=== PATIENT | female | born 1960 | race Caucasian/White ===

== ENCOUNTER → 2020-11-28 11:00 | Outpatient (BNVA) | payer OTHER, SELFPAY | PROVIDERS: Family Provider Family Medicine; PCP Urology; Referring Provider Dermatology; Visit Provider Podiatrist Foot & Ankle Surgery | DX: M79.671 Pain in right foot (principal); M79.672 Pain in left foot; M19.071 Primary osteoarthritis, right ankle and foot; M21.612 Bunion of left foot; M21.611 Bunion of right foot | CPT/HCPCS: 73630 ==

== ENCOUNTER 2021-04-25 09:39 | Outpatient (CLI) | payer OTHER, SELFPAY ==
--- NOTE | 2021-04-25 09:45 | MM_ITS ---
WS: [id number] SCREENING DIGITAL MAMMOGRAM WITH CAD HISTORY: SCREENING COMPARISON: 07/14/2019 and 09/30/2016 Bilateral CC and MLO views submitted. Computer aided detection analyzed. Breast composition: There are scattered areas of fibroglandular density. No suspicious masses, microc alcifications or architectural distortion. MM/[id number] IMPRESSION: BI-RADS: 1-Negative FOLLOW UP: 1 Year Follow-up
== END 2021-04-25 09:40 | disposition home or self-care (01) ==
LOC: RADSHAW 09:43
PROVIDERS: Family Provider Family Medicine; PCP Family Medicine; Visit Provider Family Medicine
DX: Z12.31 Encounter for screening mammogram for malignant neoplasm of breast (principal)
CPT/HCPCS: 77067

== ENCOUNTER → 2021-08-29 08:31 | Outpatient (BNVA) | payer OTHER, SELFPAY | PROVIDERS: Family Provider Family Medicine; PCP Family Medicine; Visit Provider Nurse Practitioner Family | DX: Z20.822 Contact with and (suspected) exposure to COVID-19 (principal) | CPT/HCPCS: 87426 ==

== ENCOUNTER 2021-12-11 09:59 | Outpatient (CLI) | payer OTHER, SELFPAY ==
[2021-12-13 11:06] LABS: Quest SARS-CoV-2 RNA INCONCLUSIVE (NOT DETECTED)
[2021-12-15 11:49] LABS: Adenovirus Not Detected (NOT DETECT); Chlamydia Pneumoniae Not Detected (NOT DETECT); Coronavirus 229E,HKU1,NL63,OC4 Not Detected (NOT DETECT); Human Metapneumovirus Not Detected (NOT DETECT); Human Rhinovirus/Enterovirus Not Detected (NOT DETECT); Influenza A Not Detected (NOT DETECT); Influenza A H1 Not Detected (NOT DETECT); Influenza A H1-2009 Not Detected (NOT DETECT); Influenza A H3 Not Detected (NOT DETECT); Influenza B Not Detected (NOT DETECT); Mycoplasma Pneumoniae Not Detected (NOT DETECT); Parainfluenza Virus Type 1 Not Detected (NOT DETECT); Parainfluenza Virus Type 2 Not Detected (NOT DETECT); Parainfluenza Virus Type 3 Not Detected (NOT DETECT); Parainfluenza Virus Type 4 Not Detected (NOT DETECT); Respiratory Syncytial Virus A Not Detected (NOT DETECT); Respiratory Syncytial Virus B Not Detected (NOT DETECT); SARS-COV-2 Not Detected (NOT DETECT)
== END 2021-12-11 10:00 | disposition home or self-care (01) ==
PROVIDERS: PCP Family Medicine; Visit Provider Surgery
DX: Z01.812 Encounter for preprocedural laboratory examination (principal); Z20.822 Contact with and (suspected) exposure to COVID-19
CPT/HCPCS: 87635

== ENCOUNTER 2021-12-17 06:04 | Day surgery (SDC) | payer OTHER, SELFPAY ==
[2021-12-16 11:37] VITALS: BMI 38.3
[2021-12-17 06:21] VITALS: BP 164/97; PULSE 81; RESP 18; TEMP 36.2; O2SAT 97
[2021-12-17] MEDS: sodium chloride 0.9% 1,000 ML 30 ML IV (06:34)
--- NOTE | 2021-12-17 06:45 | P.ANESASSM_ITS ---
Pre-Anesthetic Assessment Height/Weight: Height 1.7 m Weight 111.13 kg Temp Pulse Resp BP Pulse Ox 97.1 F L 81 18 164/97 97 12/17/21 06:21 12/17/21 06:21 12/17/21 06:21 12/17/21 06:21 12/17/21 06:21 Preop Diagnosis: diagnostic Operation Date: 12/17/21 07:00 Proposed Procedures p Colonoscopy 40165 Z12.11(Not Applicable) - Skinny Pearson MD Was Beta Daniel taken within 24 hours: N/A Was Clonidine taken within 24 hours: N/A Last intake: Intake Last Liquid Date 12/16/21 Last Liquid Time 22:00 Last Solid Date 12/15/21 Last Solid Time 18:30 Social Alcohol (socially) and No alcohol Exam alert, oriented x 3, clear to auscultation bilaterally and regular rate & rhythm Airway Submandibular: within normal limits Cervical ROM: within normal limits Mallampati: Class II Pulmonary None reported CV/HEM None reported None reported Hepatic None reported GI Gastroesophageal Reflux Disease (tums controls ) Metabolic Morbid Obesity [facility] [place] None reported Neuropsych None reported Anesthetic Plan ASA status: 2 Anesthesia: MAC Risk of > 500 ml blood loss (7ml/kg in children): No Medications/Allergies Home Medications Medication Instructions Recorded Confirmed Last Taken Type No Known Home Medications 12/16/21 12/16/21 Unknown History Allergies Allergy/AdvReac Type Severity Reaction Status Date / Time No Known Allergies Allergy Verified 08/29/21 09:37 Current Medications Generic Name Dose Route Start Last Admin Trade Name Freq PRN Reason Stop Dose Admin Sodium Chloride 1,000 mls @ 30 mls/hr 12/17/21 06:15 12/17/21 06:34 Sodium Chloride 0.9% IV 12/18/21 06:14 30 mls/hr .Q24H FRANCOIS Administration PFSH Anesthesia Social History (Updated 06/07/21 @ 09:31 by Tiffani Trujillo) Smoking and tobacco status: never smoked Alcohol intake: never Data Anesthesia Cardiac Studies: No Data to Display
--- NOTE | 2021-12-17 07:00 | W.PM.OPSFHP ---
Same Day Surgery H&P Indication for Procedure/HPI DATE OF PROCEDURE: December 17, 2021 CHIEF COMPLAINT/INDICATIONFOR SURGICAL PROCEDURE: colonoscopy PREOP DIAGNOSIS: diagnostic PLANNED PROCEDURE: Operation Date: 12/17/21 07:00 Proposed Procedures p Colonoscopy 15662 Z12.11(Not Applicable) - Skinny Pearson MD Medications/Allergies* Home Medications Medication Instructions Recorded Confirmed Type No Known Home Medications 12/16/21 12/16/21 History Allergies/Adverse Reactions Allergy/AdvReac Type Severity Reaction Status Date / Time No Known Allergies Allergy Verified 08/29/21 09:37 Current Medications: Generic Name Dose Route Start Last Admin Trade Name Freq PRN Reason Stop Dose Admin Sodium Chloride 1,000 mls @ 30 mls/hr 12/17/21 06:15 12/17/21 06:34 Sodium Chloride 0.9% IV 12/18/21 06:14 30 mls/hr .Q24H FRANCOIS Administration Pertinent History/Comorbid Conditions* Social History Smoking and tobacco status: never smoked Alcohol intake: never Pertinent Exam Findings alert, oriented x 3 and regular rate & rhythm Recommendations Surgery/Procedure today Coding Level of Care Code Acute Production Technologist for Tito Florez
[2021-12-17 07:20] VITALS: BP 121/73; PULSE 74; RESP 16; TEMP 36.2; O2SAT 96
--- NOTE | 2021-12-17 07:23 | ANE.PACU2 ---
Inpatient post-anesthesia follow up: Airway intact: Yes Vital signs: Temperature 97.1 F Pulse Rate 81 Respiratory Rate 18 Blood Pressure 164/97 Pulse Oximetry 97 Oxygen Delivery Me thod Room Air Oxygen Flow Rate Fraction of Inspir ed Oxygen Hydration adequate: Yes Nausea and vomiting: No Pain level: 1 Mental status: Baseline
== END 2021-12-17 07:54 | disposition home or self-care (01) ==
PROVIDERS: PCP Family Medicine; Visit Provider Surgery
PROC: 0DJD8ZZ Inspection of Lower Intestinal Tract, Via Natural or Artificial Opening Endoscopic (ICD-10-PCS; CPT 45378; principal; 2021-12-17 07:00)
DX: Z12.11 Encounter for screening for malignant neoplasm of colon (principal); D12.4 Benign neoplasm of descending colon; K21.9 Gastro-esophageal reflux disease without esophagitis; E66.01 Morbid (severe) obesity due to excess calories; Z68.38 Body mass index [BMI] 38.0-38.9, adult
CPT/HCPCS: 45385; 87635; 88305; J2704; J7030

== ENCOUNTER → 2021-12-26 09:22 | Outpatient (BNVA) | payer OTHER, SELFPAY | PROVIDERS: PCP Family Medicine; Visit Provider Nurse Practitioner Family | DX: M25.511 Pain in right shoulder (principal) | CPT/HCPCS: 73030 ==

== ENCOUNTER 2022-01-20 16:02 | Outpatient (CLI) | payer OTHER, SELFPAY ==
--- NOTE | 2022-01-20 16:09 | MR_ITS ---
WS: [id number] MRI RIGHT SHOULDER NONCONTRAST TECHNIQUE: Sagittal T2, coronal T1, T2 and proton density imaging. Axial gradient PDE imaging. CLINICAL INFORMATION: RIGHT SHOULDER PAIN COMPARISON: None. FINDINGS: Moderate degenerative arthritis of the AC joint with mild edema. Mild synovial thickening. Slight sub acromial spurring. Subacromial space is slightly narrowed. High-grade near full-thickness tear involv ing the distal supraspinatus just proximal to the insertion. Fluid filled tendon gap measuring 12.2 m m. Small amount of residual undersurface tendon. Normal infraspinatus. Normal teres minor. Normal sub scapularis. Normal biceps tendon in the bicipital groove. Biceps labral anchor appears intact. Intra-articular bi ceps tendon appears intact with mild tendinopathy and slight T2 hyperintensity. Irregular fraying of the glenoid labrum. Subchondral cystic change involving the glenoid. MR/MR shoulder RT wo con* [id number] IMPRESSION: 1. High-grade near full-thickness tear involving the distal supraspinatus 11 m m proximal to the insertion with 12.2 mm fluid-filled bursal surface tendon def ect. Small amount of residual intact undersurface supraspinatus tendon. 2. Rotator cuff is otherwise intact. 3. Tendinopathy involving the intra-articular biceps tendon. 4. Normal biceps tendon in the bicipital groove. 5. Irregular fraying of the glenoid labrum with subchondral cystic change invo lving the glenoid.
== END 2022-01-20 16:03 | disposition home or self-care (01) ==
PROVIDERS: PCP Family Medicine; Visit Provider Nurse Practitioner Family
DX: M75.101 Unspecified rotator cuff tear or rupture of right shoulder, not specified as traumatic (principal)
CPT/HCPCS: 73221

== ENCOUNTER 2022-02-04 06:00 | Outpatient (RCR) | payer OTHER, SELFPAY | END 2022-02-05 23:59 | disposition home or self-care (01) | LOC: SPT 06:00 | PROVIDERS: PCP Family Medicine; Referring Provider Orthopaedic Surgery; Visit Provider Orthopaedic Surgery | DX: M75.101 Unspecified rotator cuff tear or rupture of right shoulder, not specified as traumatic (principal) | CPT/HCPCS: 97110; 97161 ==

== ENCOUNTER 2022-02-06 06:00 | Outpatient (RCR) | payer OTHER, SELFPAY | END 2022-02-24 14:49 | disposition home or self-care (01) | LOC: SPT 06:00 | PROVIDERS: PCP Family Medicine; Referring Provider Orthopaedic Surgery; Visit Provider Orthopaedic Surgery | DX: Z47.89 Encounter for other orthopedic aftercare (principal) | CPT/HCPCS: 97110 ==

== ENCOUNTER 2022-08-17 15:07 | Outpatient (CLI) | payer OTHER, SELFPAY ==
--- NOTE | 2022-08-17 15:16 | MM_ITS ---
WS: [id number] BILATERAL 3D TOMOSYNTHESIS DIGITAL SCREENING MAMMOGRAPHY WITH CAD CLINICAL INFORMATION: SCREENING HISTORY: Screening mammogram. No current complaints. COMPARISON: April 25, 2021 TECHNIQUE: Bilateral CC and MLO views. FINDINGS: Scattered fibroglandular densities bilaterally. No suspicious focal mass, asymmetry, calcifications, or architectural distortion. No evidence of malignancy. MM/[id number] IMPRESSION: BI-RADS: 1-Negative FOLLOW UP: 1 Year Follow-up Recommend return to annual screening mammography.
== END 2022-08-17 15:08 | disposition home or self-care (01) ==
LOC: RAD 15:08
PROVIDERS: PCP Family Medicine; Visit Provider Family Medicine
DX: Z12.31 Encounter for screening mammogram for malignant neoplasm of breast (principal)
CPT/HCPCS: 77063; 77067

== ENCOUNTER 2022-11-12 12:43 | Emergency (ER) | payer OTHER, SELFPAY ==
[2022-11-12] VITALS (18 sets, daily range): BP systolic 123–144; BP diastolic 74–85; PULSE 67–83; RESP 16–18; TEMP 36.7; O2SAT 92–99
--- NOTE | 2022-11-12 13:17 | ED_ITS ---
HPI - Nausea/Vomiting/Diarrhea General: Chief complaint: Nausea/Vomiting/Diarrhea Stated complaint: n/v/dehydration Time Seen by Provider: 11/12/22 13:14 Source: patient Mode of arrival: ambulatory Limitations: no limitations History of Present Illness: 62-year-old female who states that she had nausea vomiting over the last 3 days. States she is unable to tolerate any p.o. and feels like she is getting dehydrated she had some diarrhea this morning as well she denies any abdominal pain she denies any fever she denies any dysuria she denies any worsening or improving factors. Associated nausea: Yes Associated symtoms: Reports nausea; Denies chest pain, dysuria or headache(s) Review of Systems Const: Denies: fever(s), chills, body aches or change in appetite Eyes: Denies: blurry vision or eye discomfort ENMT: Denies: throat pain or dental pain Card: Denies: chest pain Resp: Denies: dyspnea GI: Reports: nausea and vomiting; Denies: abdominal pain or diarrhea : Denies: dysuria Musc: Denies: neck pain or back pain Skin/Breast: Denies: rash Neuro: Denies: headache(s) Psych: Denies: depression Antoine/Lymph: Denies: easy bruising All/Imm: Denies: urticaria PFSH ED PFSH: Surgical History Status post colonoscopy with polypectomy (12/17/21) Social History Smoking and tobacco status: never smoked Alcohol intake: never Physical Exam Const: COMMON NORMALS: no acute distress, patient oriented x3 and healthy appearing HENMT: COMMON NORMALS: normocephalic and atraumatic HEAD & SCALP: normocephalic and atraumatic Eye: COMMON NORMALS: Equal, round and reactive pupils present and EOMs intact bilaterally PUPIL: Yes Equal, round and reactive pupils present Neck/C-Spine: COMMON NORMALS: full ROM and supple Chest: COMMONS NORMALS: normal inspection of the chest and normal palpation of entire chest wall Resp: COMMON NORMALS: normal respiratory effort, No retractions, No use of accessory muscles and clear to auscultation bilaterally AUSCULTATION: clear to auscultation bilaterally Cardio: COMMON NORMALS: regular rate, regular rhythm and No murmurs present (Cardio) RATE: regular rate RHYTHM: regular rhythm GI: COMMON NORMALS: Normal to inspection, nondistended, normoactive bowel sounds present, Soft to palpation, non-tender and no masses PALPATION: Yes Soft to palpation Extremity: COMMON NORMALS: normal to inspection and full ROM Neuro: COMMON NORMALS: patient oriented x3, moves all extremities and no focal motor deficits Psych: COMMON NORMALS: mental status grossly normal, Normal thought process present and cooperative THOUGHT PROCESS: Normal thought process present Skin: COMMON NORMALS: no rashes or lesions noted and no wounds GENERAL SKIN EXAM: no rashes or lesions noted Course Vital Signs: Vital signs: Vital Signs Temperature 98.1 F 11/12/22 12:59 Pulse Rate 83 11/12/22 12:59 Respiratory Rate 18 11/12/22 12:59 Blood Pressure 144/79 11/12/22 14:05 Pulse Oximetry 92 11/12/22 14:05 MDM - Nausea/Vomiting/Diarrhea Medical Decision Making Patient presents with nausea vomiting she feels much improved after Zofran blood work is normal abdominal exam is benign she is stable for discharge we will prescribe Zofran for home she is to follow-up PCP and return if worsening. Lab Data 11/12/22 13:29 11/12/22 13:29 Laboratory Results WBC 7.4 10^3/uL (4.0-10.0) 11/12/22 13:29 RBC 5.52 10^6/uL (4.1-5.3) H 11/12/22 13:29 Hgb 15.3 g/dL (11.5-15.3) 11/12/22 13:29 Hct 47.9 % (37.0-47.0) H 11/12/22 13:29 MCV 86.8 fl (81-99) 11/12/22 13:29 MCH 27.7 pg (28.0-34.0) L 11/12/22 13:29 MCHC 31.9 g/dL (30.0-36.0) 11/12/22 13:29 RDW 12.8 % (12.1-15.1) 11/12/22 13:29 Plt Count 225 10^3/cmm (130-400) 11/12/22 13:29 MPV 10.3 fL (7.4-10.4) 11/12/22 13:29 Neut % (Auto) 71.8 % 11/12/22 13:29 Lymph % (Auto) 17.7 % 11/12/22 13:29 Whiteside % (Auto) 8.8 % 11/12/22 13:29 Eos % (Auto) 0.3 % 11/12/22 13:29 Baso % (Auto) 0.7 % 11/12/22 13:29 Neut # (Auto) 5.32 10^3/uL (1.8-7.7) 11/12/22 13:29 Lymph # (Auto) 1.3 10^3/uL (0.8-4.8) 11/12/22 13:29 Whiteside # (Auto) 0.7 10^3/uL (0.2-0.9) 11/12/22 13:29 Eos # (Auto) 0.0 10^3/uL (0.0-0.8) 11/12/22 13:29 Baso # (Auto) 0.1 10^3/uL (0.0-0.1) 11/12/22 13:29 Nucleated RBC % (auto) 0 % 11/12/22 13: Nucleated RBCs # 0.0 /100WBC 11/12/22 13:29 Sodium 136 mmol/L (136-145) 11/12/22 13:29 Potassium 4.3 mmol/L (3.5-5.1) 11/12/22 13:29 Chloride 100 mmol/L (98-107) 11/12/22 13:29 Carbon Dioxide 25 mmol/L (22-29) 11/12/22 13:29 Anion Gap 15.3 (5-19) 11/12/22 13:29 BUN 9 mg/dL (8-23) 11/12/22 13:29 Creatinine 0.6 mg/dL (0.5-0.9) 11/12/22 13:29 GFR Calculation 101.3 mL/min (90-130) 11/12/22 13:29 Glucose 112 mg/dL (65-115) 11/12/22 13:29 Calculated Osmolality 281 mOsm/kg (285-295) L 11/12/22 13:29 Calcium 8.9 mg/dL (8.5-10.5) 11/12/22 13:29 Total Bilirubin 0.4 mg/dL (0.15-1.2) 11/12/22 13:29 AST 39 U/L (0-32) H 11/12/22 13:29 ALT 45 U/L (0-33) H 11/12/22 13:29 Alkaline Phosphatase 112 U/L (35-105) H 11/12/22 13:29 Total Protein 7.3 g/dL (6.6-8.7) 11/12/22 13:29 Albumin 3.8 g/dL (3.5-5.2) 11/12/22 13:29 Globulin 3.5 g/dL (1.3-4.6) 11/12/22 13:29 Lipase 18 U/L (13-60) 11/12/22 13:29 Discharge Plan Discharge Patient Disposition: Home Clinical Impression: Vomiting Condition: Stable Prescriptions: New ondansetron 4 mg tablet,disintegrating 4 mg PO Q6H PRN (Reason: nausea and vomiting) Qty: 14 0RF Discharge Orders: Discharge ED (Routine); Ordered 11/12/22 Ordered By: Jill Pickens Referrals: Jerry Alicia MD [Primary Care Provider] - 1-3 days Discharge Diet: Advance as tolerated Discharge Activity: Resume usual activity Patient Instructions: Acute Nausea and Vomiting (ED) Coding Level of Care Code ED Shaker Plate Operator for Jesusg Fwd Exam Comprehensive
[2022-11-12 13:43] LABS: Basophils # 0.1 10^3/uL (0.0-0.1); Basophils % 0.7 %; Eosinophils % 0.3 %; Hematocrit 47.9 % (37.0-47.0); Hemoglobin 15.3 g/dL (11.5-15.3); Lymphocytes # 1.3 10^3/uL (0.8-4.8); Lymphocytes % 17.7 %; Mean Corpuscular HGB Conc 31.9 g/dL (30.0-36.0); Mean Corpuscular Hemoglobin 27.7 pg (28.0-34.0); Mean Corpuscular Volume 86.8 fl (81-99); Mean Platelet Volume 10.3 fL (7.4-10.4); Monocytes # 0.7 10^3/uL (0.2-0.9); Monocytes % 8.8 %; Neutrophils # 5.32 10^3/uL (1.8-7.7); Neutrophils % 71.8 %; Nucleated Red Blood Cells % 0 %; Platelet Count 225 10^3/cmm (130-400); Red Blood Count 5.52 10^6/uL (4.1-5.3); Red Cell Distribution Width 12.8 % (12.1-15.1); White Blood Count 7.4 10^3/uL (4.0-10.0)
[2022-11-12] MEDS: ondansetron 2 mg/ML SDV 2 mL 4 MG IVP (13:53)
[2022-11-12] MEDS: sodium chloride 0.9% 1,000 ML 999 ML IV (13:53)
[2022-11-12 14:28] LABS: Alanine Aminotransferase 45 U/L (0-33); Albumin Level 3.8 g/dL (3.5-5.2); Alkaline Phosphatase 112 U/L (35-105); Anion Gap 15.3 (5-19); Aspartate Amino Transferase 39 U/L (0-32); Blood Urea Nitrogen 9 mg/dL (8-23); Calcium 8.9 mg/dL (8.5-10.5); Carbon Dioxide 25 mmol/L (22-29); Chloride 100 mmol/L (98-107); Creatinine Clr Calc Pharmacy 117.9833; Globulin 3.5 g/dL (1.3-4.6); Glomerular Filtration Rate 101.3 mL/min (90-130); Glucose 112 mg/dL (65-115); Lipase 18 U/L (13-60); Osmolality Calculated 281 mOsm/kg (285-295); Potassium 4.3 mmol/L (3.5-5.1); Sodium 136 mmol/L (136-145); Total Bilirubin 0.4 mg/dL (0.15-1.2); Total Protein 7.3 g/dL (6.6-8.7)
== END 2022-11-12 14:56 | disposition home or self-care (01) ==
PROVIDERS: Emergency Provider Emergency Medicine; PCP Family Medicine
DX: R11.11 Vomiting without nausea (principal)
CPT/HCPCS: 80053; 83690; 85025; 96361; 96374; 99284; J2405; J7030

== ENCOUNTER 2023-01-19 07:35 | Outpatient (CLI) | payer SELFPAY ==
[2023-01-19 08:36] LABS: HF Add Manual Diff No
[2023-01-19 08:40] LABS: Basophils # 0.1 10^3/uL (0.0-0.1); Basophils % 0.7 %; Eosinophils # 0.2 10^3/uL (0.0-0.8); Eosinophils % 2.2 %; Hematocrit 45.2 % (37.0-47.0); Hemoglobin 14.2 g/dL (11.5-15.3); Lymphocytes # 2.9 10^3/uL (0.8-4.8); Lymphocytes % 35.1 %; Mean Corpuscular HGB Conc 31.4 g/dL (30.0-36.0); Mean Corpuscular Hemoglobin 27.8 pg (28.0-34.0); Mean Corpuscular Volume 88.6 fl (81-99); Mean Platelet Volume 11.6 fL (7.4-10.4); Monocytes # 0.6 10^3/uL (0.2-0.9); Monocytes % 7.2 %; Neutrophils # 4.51 10^3/uL (1.8-7.7); Neutrophils % 54.4 %; Nucleated Red Blood Cells % 0 %; Platelet Count 319 10^3/cmm (130-400); Red Cell Distribution Width 13.2 % (12.1-15.1); White Blood Count 8.3 10^3/uL (4.0-10.0)
[2023-01-19 09:04] LABS: Estmated Average Glucose 174; Hemoglobin A1C 7.7 % (4.0-6.0)
[2023-01-19 09:12] LABS: Alanine Aminotransferase 25 U/L (0-33); Alkaline Phosphatase 125 U/L (35-105); Aspartate Amino Transferase 22 U/L (0-32); Blood Urea Nitrogen 10 mg/dL (8-23); Calcium 9.6 mg/dL (8.5-10.5); Carbon Dioxide 26 mmol/L (22-29); Chloride 100 mmol/L (98-107); Chol HDL Ratio 3.74 mg/dL (0.0-4.40); Cholesterol 198 mg/dL (0-200); Globulin 2.9 g/dL (1.3-4.6); Glomerular Filtration Rate 84.8 mL/min (90-130); Glucose 155 mg/dL (65-115); HDL Cholesterol 53 mg/dL (60-100); LDL Cholesterol Calculated 114 mg/dL (50-129); LDL HDL Ratio 2.15 RATIO (0.00-3.22); Osmolality Calculated 282 mOsm/kg (285-295); Sodium 135 mmol/L (136-145); Thyroid Stimulating Hormone 2.12 uIU/mL (0.27-4.20); Total Bilirubin 0.4 mg/dL (0.15-1.2); Total Protein 6.9 g/dL (6.6-8.7); Triglycerides 154 mg/dL (0-150)
[2023-01-19 09:14] LABS: Anion Gap 13.3 (5-19); Potassium 4.3 mmol/L (3.5-5.1)
== END 2023-01-19 07:36 | disposition home or self-care (01) ==
LOC: LAB 07:37
PROVIDERS: PCP Family Medicine; Visit Provider Dermatology
DX: Z01.89 Encounter for other specified special examinations (principal)

== ENCOUNTER → 2023-01-21 11:14 | Outpatient (BNVA) | payer OTHER, SELFPAY | PROVIDERS: PCP Family Medicine; Visit Provider Student in an Organized Health Care Education/Training Program | DX: M17.11 Unilateral primary osteoarthritis, right knee (principal) | CPT/HCPCS: 73560; 73565 ==

== ENCOUNTER 2023-07-20 06:56 | Outpatient (CLI) | payer SELFPAY ==
[2023-07-20 07:32] LABS: HF Add Manual Diff No
[2023-07-20 07:34] LABS: Basophils # 0.1 10^3/uL (0.0-0.1); Basophils % 0.7 %; Eosinophils # 0.3 10^3/uL (0.0-0.8); Eosinophils % 2.9 %; Hematocrit 45.4 % (36-47); Lymphocytes # 2.8 10^3/uL (0.8-4.8); Lymphocytes % 32.3 %; Mean Corpuscular HGB Conc 32.2 g/dL (30-55); Mean Corpuscular Hemoglobin 28.5 pg (27-33); Mean Corpuscular Volume 88.5 fl (85-98); Mean Platelet Volume 10.6 fL (7.4-10.4); Monocytes # 0.7 10^3/uL (0.2-0.9); Monocytes % 7.6 %; Neutrophils # 4.84 10^3/uL (1.8-7.7); Neutrophils % 55.9 %; Nucleated Red Blood Cells % 0 %; Platelet Count 330 10^3/cmm (157-399); Red Blood Count 5.13 10^6/uL (3.85-5.65); White Blood Count 8.66 10^3/uL (3.29-11.43)
[2023-07-20 08:06] LABS: Alanine Aminotransferase 28 U/L (0-33); Albumin Level 4.2 g/dL (3.5-5.2); Alkaline Phosphatase 112 U/L (35-105); Aspartate Amino Transferase 22 U/L (0-32); Blood Urea Nitrogen 11 mg/dL (8-23); Calcium 9.3 mg/dL (8.5-10.5); Carbon Dioxide 27 mmol/L (22-29); Chloride 103 mmol/L (98-107); Chol HDL Ratio 3.42 mg/dL (0.0-4.40); Cholesterol 188 mg/dL (0-200); Globulin 2.9 g/dL (1.3-4.6); Glucose 141 mg/dL (65-115); HDL Cholesterol 55 mg/dL (60-100); LDL Cholesterol Calculated 93 mg/dL (50-129); LDL HDL Ratio 1.69 RATIO (0.00-3.22); Osmolality Calculated 288 mOsm/kg (285-295); Sodium 138 mmol/L (136-145); Total Bilirubin 0.3 mg/dL (0.15-1.2); Total Protein 7.1 g/dL (6.6-8.7); Triglycerides 198 mg/dL (0-150)
[2023-07-20 08:10] LABS: Estmated Average Glucose 177; Hemoglobin A1C 7.8 % (4.0-6.0)
[2023-07-20 08:13] LABS: Anion Gap 12.3 (5-19); Potassium 4.3 mmol/L (3.5-5.1)
== END 2023-07-20 06:57 | disposition home or self-care (01) ==
PROVIDERS: PCP Family Medicine; Visit Provider Dermatology
DX: Z01.89 Encounter for other specified special examinations (principal)
CPT/HCPCS: 36415

== ENCOUNTER 2023-10-08 15:16 | Outpatient (CLI) | payer OTHER, SELFPAY ==
--- NOTE | 2023-10-08 15:30 | CT_ITS ---
WS: [id number] CT RIGHT knee, noncontrast HISTORY: DJD RIGHT KNEE TECHNIQUE: Protocol for BEAR total knee replacement has been obtained. This includes axial imaging th rough the RIGHT hip, RIGHT knee and RIGHT ankle. DLP: 1096.37 mGy COMPARISON: None available. Pelvis: Single sclerotic focus incompletely visualized in the RIGHT ilium. Maximum diameter of 11 mm. No additional sclerotic foci. Mild degenerative air in the SI joints. No destructive bone lesions. RIGHT knee: Moderate tricompartment osteoarthritis with joint space narrowing and marginal osteophyte s. No destructive or sclerotic bone lesions. Slight lateral subluxation of the patella. Small suprapa tellar joint effusion. Mild muscle atrophy. RIGHT ankle: Negative. IMPRESSION: CT imaging provided for BAER robotic total knee replacement. Single incompletely visualized sclerotic focus in the RIGHT ilium. With no history of prior malignanc y this is probably benign. Benign bone island within the differential. Clinically if further evaluati on is necessary bone scan imaging would provide additional information.
== END 2023-10-08 15:17 | disposition home or self-care (01) ==
LOC: RAD 15:18
PROVIDERS: PCP Family Medicine; Visit Provider Student in an Organized Health Care Education/Training Program
DX: M17.11 Unilateral primary osteoarthritis, right knee (principal)
CPT/HCPCS: 73700

== ENCOUNTER 2023-10-18 13:16 | Observation (INO) | payer OTHER, SELFPAY ==
[2023-09-28 12:54] LABS: Estmated Average Glucose 154
[2023-09-28 12:56] LABS: Basophils # 0.1 10^3/uL (0.0-0.1); Basophils % 0.6 %; Eosinophils # 0.2 10^3/uL (0.0-0.8); Eosinophils % 2.3 %; Hematocrit 45.6 % (36-47); Lymphocytes # 3.6 10^3/uL (0.8-4.8); Lymphocytes % 38.8 %; Mean Corpuscular HGB Conc 32.2 g/dL (30-55); Mean Corpuscular Hemoglobin 28.5 pg (27-33); Mean Corpuscular Volume 88.4 fl (85-98); Mean Platelet Volume 11.1 fL (7.4-10.4); Monocytes # 0.7 10^3/uL (0.2-0.9); Monocytes % 7.7 %; Neutrophils # 4.66 10^3/uL (1.8-7.7); Neutrophils % 50.2 %; Nucleated Red Blood Cells % 0 %; Platelet Count 343 10^3/cmm (157-399); Red Blood Count 5.16 10^6/uL (3.85-5.65); Red Cell Distribution Width 12.8 % (12.1-15.1)
[2023-09-28 13:05] LABS: Alanine Aminotransferase 27 U/L (0-33); Albumin Level 4.2 g/dL (3.5-5.2); Alkaline Phosphatase 109 U/L (35-105); Anion Gap 15.4 (5-19); Aspartate Amino Transferase 20 U/L (0-32); Blood Urea Nitrogen 9 mg/dL (8-23); Calcium 9.6 mg/dL (8.5-10.5); Carbon Dioxide 27 mmol/L (22-29); Chloride 103 mmol/L (98-107); Globulin 2.9 g/dL (1.3-4.6); Glomerular Filtration Rate 84.5 mL/min (90-130); Glucose 102 mg/dL (65-115); Osmolality Calculated 291 mOsm/kg (285-295); Potassium 4.4 mmol/L (3.5-5.1); Sodium 141 mmol/L (136-145); Total Bilirubin 0.3 mg/dL (0.15-1.2); Total Protein 7.1 g/dL (6.6-8.7)
[2023-09-28 14:00] LABS: Add Urine Microscopic? NO; Charge for UA Resulting for Rev
[2023-09-28 14:08] LABS: Bilirubin Urine Neg (Negative); Blood Urine Neg (Negative); Glucose Urine UA Norm (Normal); Ketones Urine 1+ (Negative); Leukocyte Esterase Urine Negative (Negative); Nitrate Urine Negative (Negative); Protein Urine Neg (Negative); Urine Appearance Clear (CLEAR); Urine Color Yellow (Yellow); Urobilinogen Urine Neg (Negative); pH Urine 6 (5-7)
[2023-10-18] VITALS (14 sets, daily range): BP systolic 114–147; BP diastolic 62–107; PULSE 53–85; RESP 16–20; TEMP 36.1–36.6; O2SAT 94–99; BMI 38.7
[2023-10-18] MEDS: acetaminophen 1,000 MG/100 ML PIGGYBACK 400 MG IV ×2 (09:43→17:31)
[2023-10-18] MEDS: scopolamine 1.5 Patch 1 PATCH TRANSDERMA (09:46)
--- NOTE | 2023-10-18 09:59 | W.PM.OPSUD ---
Surgery/Procedure H&P Update DATE OF PROCEDURE: October 18, 2023 DATE H&P PERFORMED: 10/07/23 H&P UPDATE INFORMATION: I have reviewed H&P completed within last 30 days, I have examined patient prior to procedure and No changes to prior documentation PREOP DIAGNOSIS: Right knee DJD PRIMARY INDICATION FOR PROCEDURE: Right knee degenerative joint disease PLANNED PROCEDURE: Operation Date: 10/18/23 09:40 Proposed Procedures p Juan J Robot Total Knee Arthroplasty(Right) - Petey Kaiser DO
[2023-10-18] MEDS: ketorolac 30 mg/mL INJ IVP (10:01)
[2023-10-18] MEDS: lactated ringers 500 ML IV (10:05)
[2023-10-18 10:10] LABS: Basophils # 0.1 10^3/uL (0.0-0.1); Basophils % 0.8 %; Eosinophils # 0.2 10^3/uL (0.0-0.8); Eosinophils % 2.6 %; Lymphocytes # 2.8 10^3/uL (0.8-4.8); Mean Corpuscular Hemoglobin 28.8 pg (27-33); Mean Platelet Volume 11.1 fL (7.4-10.4); Monocytes # 0.6 10^3/uL (0.2-0.9); Monocytes % 7.2 %; Neutrophils # 4.07 10^3/uL (1.8-7.7); Neutrophils % 53.1 %; Nucleated Red Blood Cells % 0 %; Platelet Count 302 10^3/cmm (157-399); Red Cell Distribution Width 13.1 % (12.1-15.1); White Blood Count 7.66 10^3/uL (3.29-11.43)
--- NOTE | 2023-10-18 10:22 | P.ANESASSM_ITS ---
Pre-Anesthetic Assessment Height/Weight: Height 1.7 m Weight 112 kg Temp Pulse Resp BP Pulse Ox O2 Del Method 97.5 F L 60 16 147/83 98 Room Air 10/18/23 08:42 10/18/23 10:10 10/18/23 10:10 10/18/23 10:10 10/18/23 10:10 10/18/23 10:10 Preop Diagnosis: Right knee DJD Operation Date: 10/18/23 09:40 Proposed Procedures p Juan J Robot Total Knee Arthroplasty(Right) - Petey Kaiser DO Familial anesthetic complications: none Was Beta Daniel taken within 24 hours: N/A Was Clonidine taken within 24 hours: N/A Last intake: Intake Last Liquid Date 10/17/23 Last Liquid Time 22:30 Last Solid Date 10/17/23 Last Solid Time 19:00 Social No alcohol and No tobacco Exam alert, oriented x 3, clear to auscultation bilaterally and regular rate & rhythm Airway Mallampati: Class II Dentition: full CV/HEM Hypertension Metabolic Diabetes Mellitus, Hyperlipidemia and Morbid Obesity Anesthetic Plan ASA status: 3 Anesthesia: Regional (specify below) Risk of > 500 ml blood loss (7ml/kg in children): No Medications/Allergies Home Medications Medication Instructions Recorded Confirmed Last Taken Type ibuprofen 200 mg capsule 200 mg PO Q6H PRN Pain 05/24/23 10/15/23 10/01/23 History dulaglutide 0.75 mg/0.5 mL 0.75 mg (0.5 mL) SUBCUT .WEEKLY 28 08/05/23 10/15/23 10/10/23 Rx subcutaneous pen injector days #2 mL (Trulicity) Allergies Allergy/AdvReac Type Severity Reaction Status Date / Time No Known Allergies Allergy Verified 10/07/23 14:59 PFSH Anesthesia Surgical History Status post colonoscopy with polypectomy (12/17/21) Family History Family/Other Diabetes Father Hypertension Mother Thyroid disease hypothyroidism Denies family history of Clotting disorder Chronic kidney disease (CKD) Bleeding disorder Cancer Stroke Social History Smoking and tobacco/nicotine status: never used tobacco/nicotine Alcohol intake: never Substance/Drug Use: never Data Anesthesia 10/18/23 09:30 09/28/23 12:00 Short CBC 10/18/23 Range/Units 09:30 WBC 7.66 (3.29-11.43) 10^3/uL Hgb 14.40 (11.27-16.99) g/dL Hct 45.0 (36-47) % MCV 90.0 (85-98) fl Plt Count 302 (157-399) 10^3/cmm Neut % (Auto) 53.1 % Neut # (Auto) 4.07 (1.8-7.7) 10^3/uL Cardiac Studies: 2 No Data to Display
--- NOTE | 2023-10-18 10:23 | ANES.PROC ---
Anesthesia Procedures Procedure/Date: 10/18/23 Nerve Block ^: Nerve Block 1: Main Anesthesia: spinal anesthesia block Time Out Performed: Yes Consent: requested by attending/covering physician, from patient, from other, risks and benefits reviewed and patient agrees to proceed Nerve block location: adductor canal (R) Anesthesia monitors applied: pulse oximetry, EKG, BP cuff and oxygen Nerve block position: supine Anesthetic Used: ropivicaine 0.5% (30 ml) and with decadron (4 mg) Ultrasound used to: recognize landmarks and visualize and ID femerol nerve Nerve Stimulator Used?: No Interscalene/Femoral BLK: 4 stimuplex 21 g needle used for position and inplane approach, visualize local anesthetic spread and no vascular puncture identified Injection: neg aspiration of heme Patient Tolerated Procedure: well and no complications Complications: none
[2023-10-18 10:24] LABS: Anion Gap 10.3 (5-19); Blood Urea Nitrogen 8 mg/dL (8-23); Carbon Dioxide 28 mmol/L (22-29); Chloride 103 mmol/L (98-107); Glomerular Filtration Rate 84.5 mL/min (90-130); Glucose 116 mg/dL (65-115); Osmolality Calculated 283 mOsm/kg (285-295); Potassium 4.3 mmol/L (3.5-5.1); Sodium 137 mmol/L (136-145)
[2023-10-18] MEDS: midazolam 1 mg/mL INJ 2 mL 2 MG IVP (10:33)
[2023-10-18] MEDS: ceFAZolin 2,000 MG in sodium chloride 0.9% (plus) 50 ML 100 MG IV ×2 (10:40→18:04)
[2023-10-18] MEDS: tranexamic acid 1,000 mg/10mL SDV 1000 MG IV (11:00)
[2023-10-18] MEDS: sodium chloride 0.9% 1,000 ML 30 ML IV (11:25)
[2023-10-18] MEDS: tranexamic acid 1,000 mg/10mL SDV 1000 MG XX (11:50)
[2023-10-18] MEDS: ketorolac 30 mg/mL INJ XX (11:52)
[2023-10-18] MEDS: ROPivacaine 0.2% Premix 100 mL 200 MG XX (11:53)
[2023-10-18] MEDS: vancomycin 1,000 MG SDV 2000 MG XX (11:54)
[2023-10-18] MEDS: EPINEPHrine 1 mg/mL INJ XX (11:54)
--- NOTE | 2023-10-18 13:11 | P.OP_ITS ---
Operative Report Date of procedure: October 18, 2023 Surgeon: Petey Kaiser DO Associate [employer]: Nestor Kaiser PA-C: PA was necessary for assistance in this case with leg positioning retraction and protection of neurovascular structures as well as assistance in implantation wound closure and dressing application. Procedure: Preoperative diagnosis: Right knee degenerative joint disease post-op diagnosis: Same Procedure done: Right total knee arthroplasty, cemented?robotic assisted Juan J Implants: Dong triathlon size 4 femur CR cemented?right [place] triathlon size? 3 tibia universal baseplate cemented Dong triathlon symmetric patella size 33 mm [place] triathlon polyethylene 9mm Surgeon: Petey Kaiser DO Estimated blood loss: 25mL Tourniquet 60minutes IV fluids: 800 mL Urine output: 650mL Complications: None Condition: stable Disposition: floor Brief History: Patient is a 63-year-old female with with chronic?right knee degenerative joint disease.? Patient has been worked up in the outpatient setting in the orthopedic office at this point time through shared decision making given his [id number] arthritis as well as failed conservative treatment, and pt would like to proceed with a?right total knee arthroplasty.? Through shared decision making elected to proceed with surgical intervention for?right total knee arthroplasty.? We talked about continued conservative treatment and surgical intervention as far as the?risk benefits complications alternatives surgical and nonsurgical treatment options.? At this point time understanding patient?risks with surgery he agrees to proceed with surgical intervention.? Once again??risk with surgery include but are not limited to make it better make it worse blood clot, heart attack, stroke, on the table, infection, injury to nerves or vessels, persistent pain, arthrofibrosis, implant failure.? Understanding these?risks patient agrees to proceed with surgical intervention consent was obtained in the office.? All questions answered. Procedure: Patient was seen and evaluated in the preoperative holding area.? Consent was?reviewed and signed with patient with plan for?right total knee arthroplasty.? All questions answered.? Correct extremity marked.? Patient seen and evaluated by the anesthesia department and once cleared for surgery was taken back to the operative suite.? Patient was placed into a supine position on the OR table.? All bony prominences were well-padded.? Patient was appropriately secured to the bed.? Patient underwent anesthesia per the anesthesia department.? Patient?received spinal anesthesia and? Golden catheter was placed.? A nonsterile tourniquet was applied to the?right thigh.? At this point in time a final timeout performed.? Patient?received appropriate preoperative antibiotics and TXA. Next the?right lower extremity was then prepped and draped in standard orthopedic fashion. Esmarch tourniquet was used exsanguinate the?right lower extremity.? Tourniquet was insufflated to 250 mmHg. A standard anterior incision was made over midline of the knee.? Sharp scalpel excision through skin and subcutaneous tissue full-thickness skin flaps were made.? Fascia was elevated off of the extensor?retinaculum was stable with medial parapatellar arthrotomy was then made.? The performed standard sequential?releases..? Immediately on entry into the joint patient was found to have severe eburnated bone and tricompartmental arthritic changes noted.? With significant osteophyte formation.? Next the the patella was then stuffed and the knee was then flexed.?? Lindy was placed superiorly around the anterior aspect of the femur this was freed of synovium and I subsequently then placed by 2 femur pins to establish my femur arrays for the Insync?robot.? These were then placed bicortically and? femur array was then appropriately secured with appropriate visualization.? Next attention was turned towards the tibial?rays.? These were then drilled sequentially bicortically in parallel fashion and intraincisional.? I then placed my guide as well as my tibial array on in place.? This was appropriately secured and had excellent visualization with the Juan J?robot.? Next the tibial checkpoint as well as femur checkpoint were then placed.? At this point time I then subsequently established my head center as well as my medial lateral malleoli as well as my checkpoints.? Next utilizing standard Juan J technology I then mapped out the appropriate points and confirmation points around the femur as well as the tibia in standard fashion.? Once this was then done I then?removed all osteophytes in preparation for dynamic testing.? All osteophytes were?removed as well as I?removed the ACL and the PCL was excised due to its significant tearing and degeneration noted.? At this point time the knee was brought into full extension and we performed our standard evaluation of our gap balancing stressing his ligaments and extension as well as flexion appropriate adjustments were made to have appropriate gap balancing in both flexion and extension.? This plan for final counts.? We get a preoperative plan evaluating our implants which was a size 4 femur and a size 3 tibia.? Next we brought in the Insync?robot and sequentially made our femur cuts.? All excess bony cuts were then?removed.? Finally we made our tibial cut.? Once this was done a standard PCL?retractor was then placed into this position I excised the medial and lateral meniscus.? The tibial cut was then subsequently?removed all excess bony debris was?removed.? I then utilized a lamina residential support specialist and?remove the posterior osteophytes.? At this point time sized the tibia and confirmed this was a size 3.? I utilized our blunt probe to establish?rotation of tibial implant.? Once this was done I then placed my tibia size 3 trial in appropriate position and then subsequently placed tibial pins to hold this into place placed a size 9 mm poly as well as a size 4 femur which was appropriately impacted in place knee was then subsequently brought into extension. Trials were then assessed, trialed with the 9 mm poly and this was stable with varus valgus stress in extension as well as had symmetrical translation when brought into flexion demonstrating symmetrical gaps. I had excellent balance gaps in flexion and extension with varus and valgus stresses.? At this point I was satisfied with these implants these were then verified and opened on the back table size 3 tibia, size 4 femur,? size 9 mm polythickness.? We did confirm appropriate gap balancing and stresses as well as alignment utilizing? Juan J and were satisfied with this plan.? ?At this point time with my trials in place I then towel clip the patella everted this made appropriate measurements subsequently utilizing freehand technique performed by patellar?resurfacing this was confirmed to be appropriate?resection and subsequently sized to be a 33 mm symmetric.? My drill peg guides were then clamped and appropriate position and appropriate position in the patella for appropriate tracking and parallel with the joint.? Pegs were drilled trial implant was placed and the knee was then subsequently?ranged and found to have excellent patellar tracking.? Femur pegs were then drilled.? Satisfied with our tibial placement?rotation I then utilized the keel punch and prepped the tibia.? At this point time all of our trial implants were?removed.? All checkpoints as well as guidepins and arrays were?removed and appropriate counts made.? The wound bed? was thoroughly irrigated and dried and prepped for cementation.? Cement was mixed on the back table.? Once cement was?ready this was then covered onto the tibia and the tibial baseplate was then impacted and all excess cement was?removed.? Next the polyethylene was then impacted into place on the tibial baseplate.? Next cement was placed onto the femur as well as under the femur implants and impacted in to place and all excess cement was extruded and?removed.? Knee was taken into full extension? to clear all excess cement was?removed.? Warm saline was placed over the joint.? I then towel clip patella and dried for cementation. cemented the patella into place.? This was all clamped and the cement was allowed to cure.? Thorough irrigation performed with pulse lavage.? I then placed my periarticular injection while the cement was curing.? Once cured the knee was taken through?range of motion and had excellent stability and gaps were balanced in flexion and extension.? Tourniquet was then deflated. hemostasis satisfactory with electrocautery.? Next I then subsequently closed the capsule with Ethibond suture as well as a?running strata fix suture.? Knee was then taken through?range of motion 30 times.? Next the skin was then closed in layered fashion of?running stratifix sutures of deep and subcutenous tissue and skin.? ?closed in flexion and Prineo glue was then placed over the incision this allowed to cure.? Incision was covered with kofi dressing, with ABDs soft?roll and Claus wrap.? Patient was then awakened from anesthesia and taken to PACU in stable condition. Disposition: Patient taken to PACU in stable condition will be admitted to the floor for pain control PT/OT weight-bear as tolerated?right lower extremity dressing changes as needed, DVT prophylaxis. Pain control. Patient will?receive appropriate postoperative antibiotics. patient will be seen today by the internal medicine team for medical management.? Patient will follow up with the office in 2 weeks.? Patient understands agrees with current plan.? All questions answered.
--- NOTE | 2023-10-18 13:13 | XR_ITS ---
WS: [id number] Exam: XR knee RT 1-2V [id number] Date/Time of Exam: 10/18/2023 1:16 PM Reason For Exam: s/p R TKA Comparison 01/21/2023. RIGHT total knee prosthesis is in place in excellent position. Postoperative changes in the adjacent soft tissues. IMPRESSION: 1. RIGHT total knee prosthesis in satisfactory alignment.
--- NOTE | 2023-10-18 13:16 | W.PM.BPON ---
Date of Procedure: [October 18, 2023] Surgeon: [Dr. Kaiser DO] Domestic Housekeeper(s): [Nestor Kaiser PA-C] Procedure(s) performed: [Right total knee arthroplasty with Juan J robotic assist] Findings of the procedure(s): [Right knee degenerative joint disease] Estimated blood loss: [25 mL] Specimen(s) removed: [N/A] Post-operative diagnosis: [Right knee degenerative joint disease]
--- NOTE | 2023-10-18 13:20 | PM.PACU ---
PACU note Narrative: Patient is a 63-year-old female just underwent a right total knee arthroplasty. Pt transferred to PACU in stable condition. Dressing is dry. pt is awake and alert. Distal pulses are palpable toes are warm and well-perfused. Cap refill is normal and under 2 seconds. Unable to assess sensation or motor due to residual spinal anesthetic. pain is controlled. Exam: awake Disposition: discharged
--- NOTE | 2023-10-18 13:50 | ANE.PACU2 ---
Inpatient post-anesthesia follow up: Airway intact: Yes Vital signs: Temperature 97.5 F Pulse Rate 65 Respiratory Rate 20 Blood Pressure 133/70 Pulse Oximetry 95 Oxygen Delivery Me thod Room Air Oxygen Flow Rate Fraction of Inspir ed Oxygen Hydration adequate: Yes Nausea and vomiting: No Pain level: 1 Mental status: Baseline
--- NOTE | 2023-10-18 13:53 | P.CONIM_ITS ---
Providers/Reason For Consult 2 Consulting Physician/Specialty*: Dr. Gr/internal medicine Reason for Consult*: Medical comorbidities Attending Physician: Petey Kaiser DO Primary Care Provider: Mindy Butterfield MD History of Present Illness History of Present Illness Nehal Gant is a 63 year old female with past medical history of type 2 diabetes mellitus who underwent right knee total arthroplasty. Patient had a uneventful OR as per the orthopedic team. Medicine was consulted for management of medical comorbidities. Patient seen postoperatively, comfortable. States her diabetes has been well- controlled and her A1c has been trending down recently. Review of Systems 2 General: Reports: 10 or more systems reviewed and unremarkable except in HPI and below Const: Denies: fever(s), chills, body aches, change in appetite, change in weight, malaise, night sweats, diaphoresis, change in sleep pattern, daytime sleepiness or snoring Eyes: Denies: change in vision, blurry vision, photophobia, eye discomfort or eye discharge ENMT: Denies: throat pain, enlarged tonsils, hoarseness, mouth pain, oral sores, dry mouth, tinnitus, nasal congestion or post nasal drip Card: Denies: chest pain, palpitations, irregular heart rhythm, edema, swelling of feet/ankles, lightheadedness, syncope, pre-syncope, dyspnea on exertion, orthopnea, leg pain with exertion or acrocyanosis Resp: Denies: dyspnea, productive cough, non-productive cough, wheezing, stridor, pain on inspiration, change in phlegm color, hemoptysis or chest congestion GI: Denies: abdominal pain, nausea, vomiting, hematemesis, coffee ground emesis, dysphagia, heartburn, diarrhea, constipation, bloating, GI cramping, change in bowel habits, pain on defecation, hematochezia or melena : Denies: flank pain, dysuria, urinary frequency, urinary urgency, urinary hesitancy, nocturia or hematuria Musc: Denies: neck pain, back pain, extremity pain, joint pain, joint swelling, joint redness, joint stiffness or limited range of motion Neuro: Denies: headache(s), numbness in extremities, weakness in extremities, sensory changes, lack of coordination, difficulty walking, frequent falls, dizziness, vertigo, confusion, Slurred speech present, difficulty communicating thoughts or seizure-like activity Psych: Denies: anxiety, depression, mood swings, panic attacks, hopelessness or irritability Endo: Denies: polyuria, polydipsia, tired all the time, cold intolerance, excessive sweating, flushing or heat intolerance Antoine/Lymph: Denies: easy bruising or easy bleeding All/Imm: Denies: tongue swelling, facial swelling or acute wheezing Medications/Allergies Home Medications Medication Instructions Recorded Confirmed Last Taken Type ibuprofen 200 mg capsule 200 mg PO Q6H PRN Pain 05/24/23 10/15/23 10/01/23 History dulaglutide 0.75 mg/0.5 mL 0.75 mg (0.5 mL) SUBCUT .WEEKLY 28 08/05/23 10/15/23 10/10/23 Rx subcutaneous pen injector days #2 mL (Trulicity) apixaban 2.5 mg tablet (Eliquis) 2.5 mg PO BID 2 weeks #28 tabs 10/18/23 Unknown Rx cephalexin 500 mg capsule 500 mg PO TID 10 days #30 caps 10/18/23 Unknown Rx ondansetron 4 mg disintegrating 4 mg PO Q8H PRN nausea and 10/18/23 Unknown Rx tablet vomiting 3 days #9 tabs Allergies Allergy/AdvReac Type Severity Reaction Status Date / Time No Known Allergies Allergy Verified 10/07/23 14:59 PFSH Acute 2 PFSH: Medical History (Updated 10/19/23 @ 08:23 by Jorgito Gr MD) Hyperlipidemia Hypertension Type 2 diabetes mellitus Surgical History (Updated 10/19/23 @ 08:23 by Jorgito Gr MD) H/O lateral meniscus repair of right knee Status post colonoscopy with polypectomy (12/17/21) Family History Family/Other Diabetes Father Hypertension Mother Thyroid disease hypothyroidism Denies family history of Clotting disorder Chronic kidney disease (CKD) Bleeding disorder Cancer Stroke Social History Smoking and tobacco/nicotine status: never used tobacco/nicotine Alcohol intake: never Substance/Drug Use: never Vitals/I&O/Wt Last Vital Signs Temp 97 F L 10/18/23 13:12 Pulse 63 10/18/23 13:36 Resp 16 10/18/23 13:36 BP 140/63 10/18/23 13:36 Pulse Ox 97 10/18/23 13:36 O2 Del Method Room Air 10/18/23 13:36 10/17/23 10/18/23 10/18/23 22:59 06:59 14:59 Intake Total 650 / 650 Output Total 675 / 675 Balance -25 / -25 Weight last 48 hrs Weight 112 kg Physical Exam 2 Narrative: General: No acute distress, AO x3 HEENT: PERRLA, pupils bilaterally equal and reactive Chest: Normal vesicular breath sounds, no added sounds, equal good air entry bilaterally CVS: S1-S2 regular, no murmurs, no tachycardia, no gallops, no rubs Abdomen: Soft, nontender, no organomegaly, bowel sounds present Neuro: No focal deficits, no facial deformity, AO x3, power lower limb not assessed postoperatively Urinary Catheter Management: Golden: Cath Placed During This Visit: yes Urinary Catheter Date of Insertion: 10/18/23 Urinary Catheter Time of Insertion: 11:00 Data 10/19/23 05:13 10/19/23 05:13 A&P Assessment and plan (1) Encounter for postoperative care: PT/anticoagulation/perioperative antibiotics as per primary team. Monitor hemoglobin. (2) Hypertension: Goal blood pressure less than 140/90 mmHg. Not on any antihypertensives as an outpatient. Will continue to monitor blood pressure and start antihypertensives as per goal. Qualifiers: Hypertension type: primary hypertension Qualified Code(s): I10 - Essential (primary) hypertension (3) Type 2 diabetes mellitus: Seems to be well-controlled. Recent A1c 7. For now start on insulin sliding scale low-dose protocol. Carb consistent diet. On discharge currently restarted on home medications. Should follow-up with primary care provider within 1 week of discharge. Qualifiers: Diabetes mellitus local company intermodal truck driver insulin use: without local company intermodal truck driver use Diabetes mellitus complication status: without complication Qualified Code(s): E11.9 - Type 2 diabetes mellitus without complications Plan Check B12 and folate levels. Replace accordingly. Thank you for involving us in care. For now we will sign off. Call with any questions. Consult Attestations 2 Medical Necessity Statement: As per primary team Diagnoses Encounter for postoperative care Z48.89 Primary hypertension I10 Hypertension type: primary hypertension Type 2 diabetes mellitus without complication, without long-term current use of insulin E11.9 Diabetes mellitus local company intermodal truck driver insulin use: without local company intermodal truck driver use Diabetes mellitus complication status: without complication
[2023-10-18 14:27] LABS: Iron 72 ug/dL (37-145); Percent Saturation 30.2 % (20-50); Total Iron Binding Capacity 238 mcg/dl; Unsaturated Iron Binding 166 ug/dL (112-347)
[2023-10-18 14:40] LABS: Vitamin B12 356 pg/mL (232-1245)
[2023-10-18] MEDS: chlorhexidine gluconate 0.12% Btl 473 mL 30 ML MUCOUS MEM ×3 (15:11→20:04)
[2023-10-18] MEDS: lactated ringers 1,000 ML 100 ML IV (15:12)
[2023-10-18 16:46] LABS: Glucose Point of Care 141 mg/dL (70-110)
[2023-10-18] MEDS: tranexamic acid 1,000 MG/100 ML PREMIX 600 MG IV (16:59)
[2023-10-18] MEDS: calcium carb-vit d 600mg/400unit 1 Tablet 1 EACH PO (17:01)
[2023-10-18] MEDS: mupirocin oint 22 gm 1 APPLIC NASAL (17:01)
[2023-10-18] MEDS: iron polysaccharide complex 150 mg Capsule PO (17:01)
[2023-10-18] MEDS: docusate sodium 100 mg Capsule PO (17:02)
[2023-10-18] MEDS: oxyCODONE 5 mg IR Tab/Cap PO (20:02)
[2023-10-18 21:18] LABS: Glucose Point of Care 185 mg/dL (70-110)
[2023-10-19] VITALS: BP 114/69; PULSE 67; RESP 17; TEMP 36.6; O2SAT 95
[2023-10-19] MEDS: acetaminophen 1,000 MG/100 ML PIGGYBACK 400 MG IV ×2 (01:24→10:49)
[2023-10-19] MEDS: lactated ringers 1,000 ML 100 ML IV (01:24)
[2023-10-19] MEDS: ceFAZolin 2,000 MG in sodium chloride 0.9% (plus) 50 ML 100 MG IV ×2 (03:33→10:59)
[2023-10-19 04:00] VITALS: BP 128/66; PULSE 64; RESP 17; TEMP 36.6; O2SAT 94
[2023-10-19 05:51] LABS: Glucose Point of Care 94 mg/dL (70-110)
[2023-10-19 06:01] LABS: Basophils % 0.1 %; Eosinophils % 0.1 %; Hematocrit 40.6 % (36-47); Lymphocytes % 14.6 %; Mean Corpuscular HGB Conc 31.5 g/dL (30-55); Mean Corpuscular Hemoglobin 27.9 pg (27-33); Mean Corpuscular Volume 88.6 fl (85-98); Mean Platelet Volume 11.5 fL (7.4-10.4); Monocytes # 1.1 10^3/uL (0.2-0.9); Neutrophils # 10.53 10^3/uL (1.8-7.7); Neutrophils % 76.7 %; Nucleated Red Blood Cells % 0 %; Platelet Count 299 10^3/cmm (157-399); Red Blood Count 4.58 10^6/uL (3.85-5.65); Red Cell Distribution Width 13.1 % (12.1-15.1); White Blood Count 13.73 10^3/uL (3.29-11.43)
[2023-10-19 06:24] LABS: Alanine Aminotransferase 16 U/L (0-33); Albumin Level 3.6 g/dL (3.5-5.2); Alkaline Phosphatase 84 U/L (35-105); Anion Gap 14.5 (5-19); Aspartate Amino Transferase 17 U/L (0-32); Blood Urea Nitrogen 9 mg/dL (8-23); Calcium 8.6 mg/dL (8.5-10.5); Carbon Dioxide 23 mmol/L (22-29); Chloride 106 mmol/L (98-107); Globulin 2.4 g/dL (1.3-4.6); Glomerular Filtration Rate 72.4 mL/min (90-130); Glucose 161 mg/dL (65-115); Magnesium 2.2 mg/dL (1.7-2.3); Osmolality Calculated 290 mOsm/kg (285-295); Potassium 4.5 mmol/L (3.5-5.1); Sodium 139 mmol/L (136-145); Total Bilirubin 0.2 mg/dL (0.15-1.2)
[2023-10-19 06:29] VITALS: RESP 16
[2023-10-19] MEDS: oxyCODONE 5 mg IR Tab/Cap PO ×2 (06:29→13:47)
[2023-10-19 06:47] LABS: Folate Level 2.2 ng/mL (4.8-37.3)
[2023-10-19 07:19] VITALS: BP 128/74; PULSE 55; RESP 16; TEMP 36.6; O2SAT 96
[2023-10-19] MEDS: iron polysaccharide complex 150 mg Capsule PO (08:32)
[2023-10-19] MEDS: docusate sodium 100 mg Capsule PO (08:32)
[2023-10-19] MEDS: calcium carb-vit d 600mg/400unit 1 Tablet 1 EACH PO (08:32)
[2023-10-19] MEDS: multivitamin therapeutic Tablet 1 TAB PO (08:32)
[2023-10-19] MEDS: apixaban 5 mg Tablet 2.5 MG PO (08:32)
[2023-10-19] MEDS: chlorhexidine gluconate 0.12% Btl 473 mL 30 ML MUCOUS MEM (08:32)
[2023-10-19] MEDS: mupirocin oint 22 gm 1 APPLIC NASAL (08:33)
--- NOTE | 2023-10-19 09:09 | PC.CHAP ---
Pastoral Care Encounter/Spiritual Assessment Type of Contact [] Declined editorial specialist visit [] Patient/Family/Request visit [] Outpatient visit [] Follow-up visit [] Physician referral [] Code/Alert [x] Routine visit [] Staff referral [] Actively dying [] Patient sleeping [] Family support [] [] Out of room [] Palliative care [] [] Receiving care in room [] Pre-surgical visit [] Trauma [] Long length of stay [] ICU visit [] Other: Relational/Emotional Strength [x] Patient feels connected with others/family/visitors/staff [] Distress [] Loneliness/isolation [] Abandonment Spirituality of Patient [x] Person of Estefania [] Attends Yarsani of their Estefania [x] Believes in Prayer [] Reads Bible or Buddhist materials [] There are Spiritual issues to be addressed Medical Device Sales Consultant Interventions [x] Prayer [x] Active listening [] Non-anxious presence [x] Spiritual/emotional support [] Crisis/trauma care [] Spiritual counseling [] Bereavement support [] Provided bereavement packet [] Provided Bible/devotional materials [] Provided toy/stuffed animal, coloring book to patient or family member [] Provided Communion [] Anointing/Dyer [] Salvation [x] Completed spiritual assessment [] Other: Impact on Illness or Injury [] Angry [] Fearful [] Anxious [] Often cries [] Exhaustion [] Unable to work [] Unable to attend taoism [] Unable to walk/stand [] Unable to read [] Unable to drive [] Unable to eat/drink [] Unable to sleep [] Unable to be with family [] Patient intubated [] Other: Summary Time spent with patient 5 min
[2023-10-19 11:03] VITALS: BP 119/71; PULSE 52; RESP 16; TEMP 36.6; O2SAT 97
--- NOTE | 2023-10-19 11:41 | PC.NURSE ---
glucose 122 at 0630 per BUTCH Smith
--- NOTE | 2023-10-19 12:18 | P.PN_ITS ---
Subjective 2 Subjective: Patient is a 63-year-old female that is 1 day postop right total knee arthroplasty. Denies any acute events overnight. Patient has been working with PT today. Denies any other complaints. Vitals/I&O/Wt Last Vital Signs Temp 97.8 F 10/19/23 11:03 Pulse 52 L 10/19/23 11:03 Resp 16 10/19/23 11:03 BP 119/71 10/19/23 11:03 Pulse Ox 97 10/19/23 11:03 O2 Del Method Room Air 10/19/23 11:03 10/18/23 10/19/23 10/19/23 22:59 06:59 14:59 Intake Total 1450 / 2100 1150 / 3250 390 / 390 Output Total 550 / 1225 650 / 1875 Balance 900 / 875 500 / 1375 390 / 390 Weight last 48 hrs Weight 262 lb 11.2 oz Weight 246 lb 14.684 oz Weight 246 lb 14.684 oz Physical Exam 2 Const: COMMON NORMALS: no acute distress and alert Resp: COMMON NORMALS: normal respiratory effort and No retractions Cardio: COMMON NORMALS: Peripheral pulses 2+ throughout PERIPHERAL PULSES: Peripheral pulses 2+ throughout Extremity: NARRATIVE EXTREMITY EXAM: Right leg?dressing is dry and intact. Patient has active range of motion in knee from 0 to 25 degrees. Pedal pulse 2+. Patient can straight leg raise, dorsiflex and plantarflex foot. Neuro: SENSORIUM/ORIENTATION: Yes alert Skin: GENERAL SKIN EXAM: dry skin Urinary Catheter Management: Golden: Cath Placed During This Visit: yes, but has since been removed by the nurse Reason for Continuing Indwelling Catheter: Decision to DC Catheter Urinary Catheter Date of Insertion: 10/18/23 Urinary Catheter Time of Insertion: 11:00 Date Urinary Catheter Removed: 10/19/23 Time Urinary Catheter Discontinued: 05:44 Data 10/19/23 05:13 10/19/23 05:13 A&P Assessment and plan (1) Status post total right knee replacement using cement: Plan Plan: -Imaging and Labs reviewed -Hospitalist on board for medical management. -DVT prophylaxis- elquis 2.5 mg BID -Weight-bear as tolerated on right leg -Pain control -PT Pt is doing well 1 day postop Right total knee replacement. Pt is cleared for discharge home today. Patient will be sent home with a prescription for oxycodone, Eliquis and Zofran. She will be scheduled for 2-week postop appointment at Ortho clinic. Attestations 2 Medical Necessity Statement*: Ongoing care for right TKA Coding Level of Care Code Acute Code for Chg Fwd Diagnoses Status post total right knee replacement using cement Z96.651
--- NOTE | 2023-10-19 12:29 | PM.DCS ---
Discharge Providers Date of Admission: 10/18/23 13:16 Date of Discharge: October 19, 2023 Attending Provider at Admission: Petey Kaiser DO Attending Provider at Discharge: Petey Kaiser DO Consults: Hospitalist?Dr. Gr Primary Care Provider: Mindy Butterfield MD Diagnoses at Discharge Discharge Diagnosis (1) Status post total right knee replacement using cement: Status: Acute Reason for Visit Reason for Visit: 03332 M17.11 Brief History: Status post right total knee arthroplasty Juan J robotic assisted Hospital Course Hospital Course Patient presented to the preoperative holding area with plan for right total knee arthroplasty after patient has been worked up in the outpatient setting for failed conservative treatment of right knee degenerative joint disease. Once cleared by anesthesia for surgery patient subsequently was taken back to the operative suite underwent anesthesia per anesthesia department and then subsequently underwent a right total knee arthroplasty. Procedure was performed without any complications patient was taken to PACU in stable condition patient recovered well in PACU and then was admitted to the floor postoperatively internal medicine was consulted and on board for medical management and assistance with care. Patient received appropriate PT/OT, postoperative antibiotics, postoperative TXA, pain control, postoperative DVT prophylaxis. Elevation and ice. Patient encouraged for knee range of motion allowed weightbearing as tolerated to the operative lower extremity. Dressing was changed as needed, labs were monitored daily. Patient recovered well postoperatively and worked well and progressed well with therapy. No complications postoperatively. It was determined on postoperative day 1 the patient was stable for discharge from an orthopedic standpoint and medicine. Patient was comfortable with discharge and plan was discharged home. Patient received appropriate discharge instructions as well as pain medication and DVT prophylaxis postoperatively. Patient will maintain jax dressing for 7 days. Given her diabetic history we will prescribe her 10 days of Keflex for infection prophylaxis. Given appropriate instructions for dressing management. Patient will follow-up with Dr. Kaiser/orthopedics in the office in 2 weeks. All questions answered. Understand if there is any issues questions or concerns and contact the office. Physical Exam Const: COMMON NORMALS: no acute distress and alert Resp: COMMON NORMALS: normal respiratory effort and No retractions Cardio: COMMON NORMALS: Peripheral pulses 2+ throughout PERIPHERAL PULSES: Peripheral pulses 2+ throughout Extremity: NARRATIVE EXTREMITY EXAM: Right leg?dressing is dry and intact. Patient has active range of motion in knee from 0 to 25 degrees. Limited secondary to dressing and pain. Jax dressing on in place. pedal pulse 2+. Patient can straight leg raise, dorsiflex and plantarflex foot. Neuro: SENSORIUM/ORIENTATION: Yes alert Skin: GENERAL SKIN EXAM: dry skin Urinary Catheter Management: Golden: Cath Placed During This Visit: yes, but has since been removed by the nurse Reason for Continuing Indwelling Catheter: Decision to DC Catheter Urinary Catheter Date of Insertion: 10/18/23 Urinary Catheter Time of Insertion: 11:00 Date Urinary Catheter Removed: 10/19/23 Time Urinary Catheter Discontinued: 05:44 Discharge Data Studies Completed and Pending Completed Studies During Hospitalization Category Date Time Status XR knee RT 1-2V [id number] Routine Exams 10/18/23 13:13 Completed Pending at discharge Category Date Time Status Complete Blood Count w/Auto AM LABS Lab 10/20/23 04:00 Ordered Complete Blood Count w/Auto AM LABS Lab 10/21/23 04:00 Ordered Comprehensive Metabolic Panel AM LABS Lab 10/20/23 04:00 Ordered Comprehensive Metabolic Panel AM LABS Lab 10/21/23 04:00 Ordered MAG [Magnesium] AM LABS Lab 10/20/23 04:00 Ordered MAG [Magnesium] AM LABS Lab 10/21/23 04:00 Ordered Laboratory Results WBC 13.73 10^3/uL (3.29-11.43) H 10/19/23 05:13 RBC 4.58 10^6/uL (3.85-5.65) 10/19/23 05:13 Hgb 12.80 g/dL (11.27-16.99) 10/19/23 05:13 Hct 40.6 % (36-47) 10/19/23 05:13 MCV 88.6 fl (85-98) 10/19/23 05:13 MCH 27.9 pg (27-33) 10/19/23 05:13 MCHC 31.5 g/dL (30-55) 10/19/23 05:13 RDW 13.1 % (12.1-15.1) 10/19/23 05:13 Plt Count 299 10^3/cmm (157-399) 10/19/23 05:13 MPV 11.5 fL (7.4-10.4) H 10/19/23 05:13 Neut % (Auto) 76.7 % 10/19/23 05:13 Lymph % (Auto) 14.6 % 10/19/23 05:13 [place] % (Auto) 8.0 % 10/19/23 05:13 Eos % (Auto) 0.1 % 10/19/23 05:13 Baso % (Auto) 0.1 % 10/19/23 05:13 Neut # (Auto) 10.53 10^3/uL (1.8-7.7) H 10/19/23 05:13 Lymph # (Auto) 2.0 10^3/uL (0.8-4.8) 10/19/23 05:13 [place] # (Auto) 1.1 10^3/uL (0.2-0.9) H 10/19/23 05:13 Eos # (Auto) 0.0 10^3/uL (0.0-0.8) 10/19/23 05:13 Baso # (Auto) 0.0 10^3/uL (0.0-0.1) 10/19/23 05:13 Nucleated RBC % (auto) 0 % 10/19/23 05:13 Nucleated RBCs # 0.0 /100WBC 10/19/23 05:13 Sodium 139 mmol/L (136-145) 10/19/23 05:13 Potassium 4.5 mmol/L (3.5-5.1) 10/19/23 05:13 Chloride 106 mmol/L (98-107) 10/19/23 05:13 Carbon Dioxide 23 mmol/L (22-29) 10/19/23 05:13 Anion Gap 14.5 (5-19) 10/19/23 05:13 BUN 9 mg/dL (8-23) 10/19/23 05:13 Creatinine 0.8 mg/dL (0.5-0.9) 10/19/23 05:13 GFR Calculation 72.4 mL/min (90-130) L 10/19/23 05:13 Glucose 161 mg/dL (65-115) H 10/19/23 05:13 POC Glucose 185 mg/dL (70-110) H 10/18/23 21:15 Estimat Average Glucose 154 09/28/23 12:00 Hemoglobin A1c 7.0 % (4.0-6.0) H 09/28/23 12:00 Calculated Osmolality 290 mOsm/kg (285-295) 10/19/23 05:13 Calcium 8.6 mg/dL (8.5-10.5) 10/19/23 05:13 Magnesium 2.2 mg/dL (1.7-2.3) 10/19/23 05:13 Iron 72 ug/dL (37-145) 10/18/23 09:30 TIBC 238 mcg/dl 10/18/23 09:30 % Saturation 30.2 % (20-50) 10/18/23 09:30 Unsat Iron Binding 166 ug/dL (112-347) 10/18/23 09:30 Total Bilirubin 0.2 mg/dL (0.15-1.2) 10/19/23 05:13 AST 17 U/L (0-32) 10/19/23 05:13 ALT 16 U/L (0-33) 10/19/23 05:13 Alkaline Phosphatase 84 U/L (35-105) 10/19/23 05:13 Total Protein 6.0 g/dL (6.6-8.7) L 10/19/23 05:13 Albumin 3.6 g/dL (3.5-5.2) 10/19/23 05:13 Globulin 2.4 g/dL (1.3-4.6) 10/19/23 05:13 Vitamin B12 356 pg/mL (232-1245) 10/18/23 09:30 Folate 2.2 ng/mL (4.8-37.3) L 10/19/23 05:13 Urine Color Yellow (Yellow) 09/28/23 13:55 Urine Appearance Clear (CLEAR) 09/28/23 13:55 Urine pH 6 (5-7) 09/28/23 13:55 Ur Specific [place] 1.020 (1.005-1.030) 09/28/23 13:55 Urine Protein Neg (Negative) 09/28/23 13:55 Urine Glucose (UA) Norm (Normal) 09/28/23 13:55 Urine Ketones 1+ (Negative) H 09/28/23 13:55 Urine Blood Neg (Negative) 09/28/23 13:55 Urine Nitrate Negative (Negative) 09/28/23 13:55 Urine Bilirubin Neg (Negative) 09/28/23 13:55 Urine Urobilinogen Neg mg/dL (Negative) 09/28/23 13:55 Ur Leukocyte Esterase Negative (Negative) 09/28/23 13:55 Blood Type A Positive 10/18/23 09:30 Rho(D) Type Rh positive 10/18/23 09:30 Antibody Screen Negative 10/18/23 09:30 Imaging Xray Ortho: Radiologist's impression: IMPRESSION: 1. RIGHT total knee prosthesis in satisfactory alignment. Procedures Performed Right total knee arthroplasty Juan J robotic assisted Vitals Last Vital Signs Temp 97.8 F 10/19/23 11:03 Pulse 52 L 10/19/23 11:03 Resp 16 10/19/23 11:03 BP 119/71 10/19/23 11:03 Pulse Ox 97 10/19/23 11:03 O2 Del Method Room Air 10/19/23 11:03 Discharge Plan Discharge Patient Disposition: Home Condition: Stable Prescriptions: New Eliquis 2.5 mg tablet 2.5 mg PO BID 14 Days Qty: 28 0RF ondansetron 4 mg tablet,disintegrating 4 mg PO Q8H PRN (Reason: nausea and vomiting) 3 Days Qty: 9 0RF cephalexin 500 mg capsule 500 mg PO TID 10 Days Qty: 30 0RF folic acid-B [id number]-[id number]-zinc 3-70-15 mg-mcg-mg tablet 1 tab PO DAILY Qty: 30 0RF oxycodone 5 mg tablet 5 mg PO Q6H PRN (Reason: pain postop) 7 Days Qty: 28 0RF Tylenol Extra Strength 500 mg tablet 500 mg PO Q4H PRN (Reason: fever or pain) 14 Days Qty: 84 0RF Continued ibuprofen 200 mg capsule 200 mg PO Q6H PRN (Reason: Pain) Trulicity 0.75 mg/0.5 mL pen injector 0.75 mg SUBCUT .WEEKLY 28 Days Qty: 2 2RF Discharge Orders: Discharge Order (Routine); Ordered 10/19/23 Ordered By: Petey Kaiser Other Ambulatory Orders: Physical Therapy Eval and Treat Outpatient (Order) Timeframe: 3 Days Facility: [facility] - Location: Physical Therapy [facility] Ordered By: Petey Kaiser Referrals: Petey Kaiser DO [Physician] - 11/09/23 9:30 am Discharge Diet: Advance as tolerated Discharge Activity: Limit activity as instructed Patient Instructions: Cephalexin (By mouth), Oxycodone/Acetaminophen (By mouth), Apixaban (By mouth), Total Knee Replacement (GEN), Joint Replacement Stoplight, Opioid Safety Activity Restrictions/Additional Instructions: Orthopedic discharge instructions: Keep incisions clean dry and intact, leave Jax bandage dressings on in place for 7 days and after that battery pack will and you can remove. Disconnect batter pack when taking shower. may rinse incisions with warm soapy water pat dry and redress with a dry dressing. Patient may weight-bear as tolerate to the operative extremity Utilize crutches as needed Encourage knee range of motion Ice and elevate as needed for pain and swelling Take pain medication as prescribed Take antinausea medication as needed The prescribed Eliquis twice daily for the next 14 days for blood clot prevention Take antibiotic as prescribed May supplement for pain with ibuprofen [id number] as needed No baths or soaks Follow-up in the orthopedic office in 2 weeks Contact the office for any questions or concerns Discharge Attestations Time Spent in Discharge Care*: less than 30 min Quality Metrics Clinical Quality Measures [ No reported AMI, CVA or VTE this stay] Coding Level of Care Code Acute Code for Chg Fwd Diagnoses Status post total right knee replacement using cement Z96.651 Time Spent (min) 25
[2023-10-19 13:47] VITALS: RESP 16
[2023-10-19 21:18] LABS: Glucose Point of Care 122 mg/dL (70-110)
[2023-10-19 21:19] LABS: Glucose Point of Care 201 mg/dL (70-110)
== END 2023-10-19 13:55 | disposition home or self-care (01) ==
LOC: MEDSURG 13:18
PROVIDERS: Student in an Organized Health Care Education/Training Program; Admitting Provider Student in an Organized Health Care Education/Training Program; PCP Family Medicine; Visit Provider Student in an Organized Health Care Education/Training Program
PROC: 8E0Y0CZ Robotic Assisted Procedure of Lower Extremity, Open Approach (ICD-10-PCS; CPT 27447; principal; 2023-10-18 09:40)
DX: M17.11 Unilateral primary osteoarthritis, right knee (principal); E78.5 Hyperlipidemia, unspecified; I10 Essential (primary) hypertension; E11.9 Type 2 diabetes mellitus without complications; E66.01 Morbid (severe) obesity due to excess calories; Z68.41 Body mass index [BMI] 40.0-44.9, adult
CPT/HCPCS: 20985; 27447; 36415; 36416; 51702; 73560; 80048; 80053; 81003; 82607; 82746; 82962; 83036; 83540; 83550; 83735; 85025; 86850; 86900; 97116; 97161; 97166; 97530; C1776; G0378; J0131; J0171; J0690; J1100; J1885; J2250; J2704; J2795; J3370; J7030; J7120

== ENCOUNTER 2023-10-26 06:00 | Outpatient (RCR) | payer OTHER, SELFPAY | END 2023-11-07 23:59 | disposition home or self-care (01) | LOC: MPT 06:00 | PROVIDERS: Visit Provider Student in an Organized Health Care Education/Training Program | DX: M17.11 Unilateral primary osteoarthritis, right knee (principal); Z96.651 Presence of right artificial knee joint | CPT/HCPCS: 97110; 97161; G0283 ==

== ENCOUNTER 2023-11-08 06:00 | Outpatient (RCR) | payer OTHER, SELFPAY | END 2023-12-08 23:59 | disposition home or self-care (01) | LOC: MPT 06:00 | PROVIDERS: Visit Provider Student in an Organized Health Care Education/Training Program | DX: M17.11 Unilateral primary osteoarthritis, right knee (principal); Z96.651 Presence of right artificial knee joint | CPT/HCPCS: 97110; G0283 ==

== ENCOUNTER → 2023-11-09 09:26 | Outpatient (BNVA) | payer OTHER, SELFPAY | PROVIDERS: Visit Provider Student in an Organized Health Care Education/Training Program | DX: Z96.651 Presence of right artificial knee joint (principal) | CPT/HCPCS: 73562 ==

== ENCOUNTER → 2023-12-04 09:54 | Outpatient (BNVA) | payer OTHER, SELFPAY | PROVIDERS: PCP Family Medicine; Visit Provider Nurse Practitioner Family | DX: R68.89 Other general symptoms and signs (principal) | CPT/HCPCS: 87400 ==

== ENCOUNTER 2023-12-09 06:00 | Outpatient (RCR) | payer OTHER, SELFPAY | END 2024-01-06 23:59 | disposition home or self-care (01) | LOC: MPT 06:00 | PROVIDERS: PCP Family Medicine; Visit Provider Student in an Organized Health Care Education/Training Program | DX: M17.11 Unilateral primary osteoarthritis, right knee (principal); Z96.651 Presence of right artificial knee joint | CPT/HCPCS: 97110 ==

== ENCOUNTER → 2023-12-21 09:13 | Outpatient (BNVA) | payer OTHER, SELFPAY | PROVIDERS: PCP Family Medicine; Visit Provider Student in an Organized Health Care Education/Training Program | DX: Z96.651 Presence of right artificial knee joint (principal) | CPT/HCPCS: 73560; 73565 ==

== ENCOUNTER 2024-01-07 06:00 | Outpatient (RCR) | payer OTHER, SELFPAY | END 2024-01-14 23:59 | disposition home or self-care (01) | LOC: MPT 06:00 | PROVIDERS: PCP Family Medicine; Visit Provider Student in an Organized Health Care Education/Training Program | DX: M17.11 Unilateral primary osteoarthritis, right knee (principal); Z96.651 Presence of right artificial knee joint | CPT/HCPCS: 97110 ==

== ENCOUNTER 2024-04-18 07:15 | Outpatient (CLI) | payer SELFPAY ==
[2024-04-18 07:24] LABS: HF Add Manual Diff No
[2024-04-18 07:27] LABS: Basophils # 0.1 10^3/uL (0.0-0.1); Basophils % 0.9 %; Eosinophils # 0.2 10^3/uL (0.0-0.8); Eosinophils % 2.8 %; Hematocrit 43.2 % (36-47); Lymphocytes # 2.8 10^3/uL (0.8-4.8); Lymphocytes % 41.1 %; Mean Corpuscular HGB Conc 32.2 g/dL (30-55); Mean Corpuscular Hemoglobin 28.7 pg (27-33); Mean Corpuscular Volume 89.1 fl (85-98); Mean Platelet Volume 10.8 fL (7.4-10.4); Monocytes # 0.5 10^3/uL (0.2-0.9); Monocytes % 7.4 %; Neutrophils # 3.23 10^3/uL (1.8-7.7); Neutrophils % 47.5 %; Nucleated Red Blood Cells % 0 %; Platelet Count 313 10^3/cmm (157-399); Red Blood Count 4.85 10^6/uL (3.85-5.65); Red Cell Distribution Width 12.8 % (12.1-15.1); White Blood Count 6.79 10^3/uL (3.29-11.43)
[2024-04-18 07:53] LABS: Alanine Aminotransferase 18 U/L (0-33); Albumin Level 3.9 g/dL (3.5-5.2); Alkaline Phosphatase 108 U/L (35-105); Anion Gap 13.7 (5-19); Aspartate Amino Transferase 20 U/L (0-32); Blood Urea Nitrogen 9 mg/dL (8-23); Calcium 8.8 mg/dL (8.5-10.5); Carbon Dioxide 28 mmol/L (22-29); Chloride 101 mmol/L (98-107); Chol HDL Ratio 3.12 mg/dL (0.0-4.40); Cholesterol 187 mg/dL (0-200); Globulin 2.8 g/dL (1.3-4.6); Glomerular Filtration Rate 84.2 mL/min (90-130); Glucose 128 mg/dL (65-115); HDL Cholesterol 60 mg/dL (60-100); LDL Cholesterol Calculated 108 mg/dL (50-129); Osmolality Calculated 286 mOsm/kg (285-295); Potassium 4.7 mmol/L (3.5-5.1); Sodium 138 mmol/L (136-145); Total Bilirubin 0.3 mg/dL (0.15-1.2); Total Protein 6.7 g/dL (6.6-8.7); Triglycerides 93 mg/dL (0-150)
[2024-04-18 07:55] LABS: Estmated Average Glucose 140; Hemoglobin A1C 6.5 % (4.0-6.0)
== END 2024-04-18 07:16 | disposition home or self-care (01) ==
LOC: LAB 07:17
PROVIDERS: PCP Family Medicine; Visit Provider Dermatology
DX: Z01.89 Encounter for other specified special examinations (principal)

== ENCOUNTER → 2024-07-18 07:55 | Outpatient (BNVA) | payer OTHER, SELFPAY | PROVIDERS: PCP Family Medicine; Visit Provider Physician Assistant | DX: M25.562 Pain in left knee (principal); G89.29 Other chronic pain; M17.12 Unilateral primary osteoarthritis, left knee | CPT/HCPCS: 73560; 73565 ==

== ENCOUNTER 2024-08-31 14:48 | Outpatient (CLI) | payer OTHER, SELFPAY ==
--- NOTE | 2024-08-31 15:00 | MM_ITS ---
WS: [id number] BILATERAL SCREENING DIGITAL TOMOSYNTHESIS MAMMOGRAM WITH CAD HISTORY: Z12.39 - Encounter for other screening for malignant neop... COMPARISON: 08/17/2022, 04/25/2021 and 07/14/2019 Bilateral CC and MLO views with tomosynthesis and synthetic mammography submitted. Computer aided det ection analyzed. Breast composition: There are scattered areas of fibroglandular density. No suspicious masses, microc alcifications or architectural distortion. Asymmetry in the central LEFT breast is stable. No new mas s or calcification. MM/MM scr BI tomosynthesis [id number] IMPRESSION: BI-RADS: 2 - Benign. FOLLOW UP: 1 Year Follow-up
== END 2024-08-31 14:49 | disposition home or self-care (01) ==
LOC: RAD 14:48
PROVIDERS: PCP Family Medicine; Visit Provider Family Medicine
DX: Z12.39 Encounter for other screening for malignant neoplasm of breast (principal); R92.323 Mammographic fibroglandular density, bilateral breasts
CPT/HCPCS: 77063; 77067

== ENCOUNTER 2025-01-16 06:05 | Outpatient (CLI) | payer SELFPAY ==
[2025-01-16 06:43] LABS: Basophils # 0.1 10^3/uL (0.0-0.1); Basophils % 0.7 %; Eosinophils # 0.3 10^3/uL (0.0-0.8); Eosinophils % 3.4 %; HF Add Manual Diff No; Lymphocytes # 3.1 10^3/uL (0.8-4.8); Lymphocytes % 37.7 %; Mean Corpuscular HGB Conc 31.8 g/dL (30-55); Mean Corpuscular Hemoglobin 28.2 pg (27-33); Mean Corpuscular Volume 88.5 fl (85-98); Mean Platelet Volume 10.3 fL (7.4-10.4); Monocytes # 0.7 10^3/uL (0.2-0.9); Monocytes % 8.9 %; Neutrophils # 4.03 10^3/uL (1.8-7.7); Neutrophils % 48.9 %; Nucleated Red Blood Cells % 0 %; Platelet Count 319 10^3/cmm (157-399); Red Blood Count 4.97 10^6/uL (3.85-5.65); Red Cell Distribution Width 13.2 % (12.1-15.1); White Blood Count 8.24 10^3/uL (3.29-11.43)
[2025-01-16 06:58] LABS: Estmated Average Glucose 151; Hemoglobin A1C 6.9 % (4.0-6.0)
[2025-01-16 07:11] LABS: Alanine Aminotransferase 21 U/L (0-33); Alkaline Phosphatase 103 U/L (35-105); Anion Gap 13.3 (5-19); Aspartate Amino Transferase 17 U/L (0-32); Blood Urea Nitrogen 12 mg/dL (8-23); Calcium 8.8 mg/dL (8.5-10.5); Carbon Dioxide 26 mmol/L (22-29); Chloride 103 mmol/L (98-107); Chol HDL Ratio 3.28 mg/dL (0.0-4.40); Cholesterol 187 mg/dL (0-200); Globulin 2.7 g/dL (1.3-4.6); Glomerular Filtration Rate 84.2 mL/min (90-130); Glucose 118 mg/dL (65-115); HDL Cholesterol 57 mg/dL (60-100); LDL Cholesterol Calculated 99 mg/dL (50-129); LDL HDL Ratio 1.74 RATIO (0.00-3.22); Osmolality Calculated 287 mOsm/kg (285-295); Potassium 4.3 mmol/L (3.5-5.1); Sodium 138 mmol/L (136-145); Thyroid Stimulating Hormone 2.33 uIU/mL (0.27-4.20); Total Bilirubin 0.5 mg/dL (0.15-1.2); Total Protein 6.7 g/dL (6.6-8.7); Triglycerides 155 mg/dL (0-150)
== END 2025-01-16 06:06 | disposition home or self-care (01) ==
LOC: LAB 06:09
PROVIDERS: PCP Family Medicine; Visit Provider Dermatology
DX: Z01.89 Encounter for other specified special examinations (principal)
CPT/HCPCS: 36415

== ENCOUNTER → 2025-02-07 07:54 | Outpatient (BNVA) | payer OTHER, SELFPAY | PROVIDERS: PCP Family Medicine; Visit Provider Physician Assistant | DX: M17.12 Unilateral primary osteoarthritis, left knee (principal); G89.29 Other chronic pain | CPT/HCPCS: 73560; 73565 ==

== ENCOUNTER → 2025-04-20 12:02 | Outpatient (BNVA) | payer OTHER, MEDICARE, SELFPAY | PROVIDERS: PCP Family Medicine | DX: R50.9 Fever, unspecified (principal) | CPT/HCPCS: 87400; 87426 ==

== ENCOUNTER → 2025-07-10 11:35 | Outpatient (BNVA) | payer OTHER, SELFPAY | PROVIDERS: PCP Family Medicine; Visit Provider Physician Assistant | DX: Z01.818 Encounter for other preprocedural examination (principal); E11.9 Type 2 diabetes mellitus without complications | CPT/HCPCS: 36415; 80053; 81001; 83036; 85025 ==

== ENCOUNTER → 2025-07-17 07:49 | Outpatient (BNVA) | payer OTHER, SELFPAY | PROVIDERS: PCP Family Medicine; Visit Provider Family Medicine | DX: Z01.818 Encounter for other preprocedural examination (principal); I49.8 Other specified cardiac arrhythmias; R94.31 Abnormal electrocardiogram [ECG] [EKG]; I45.10 Unspecified right bundle-branch block | CPT/HCPCS: 93005 ==

== ENCOUNTER 2025-07-20 13:07 | Outpatient (CLI) | payer OTHER, SELFPAY ==
--- NOTE | 2025-07-20 13:30 | CT_ITS ---
WS: [id number] CT LEFT KNEE, NONCONTRAST [facility] TECHNIQUE: Noncontrast CT of the LEFT knee to include the LEFT hip and ankle. CLINICAL INFORMATION: LEFT TOTAL KNEE ARTHROPLASTY COMPARISON: None. DLP: 842.[address] scans at [facility] use at least one of these dose optimization techniques: automated exposure control; mA and/or kV adjustment per patient size (includes targeted exams where dose is matched to clinical indication); or iterative reconstruction. FINDINGS: Moderate to advanced tricompartmental arthritis LEFT knee. Hypertrophic patella. Only trace suprapatellar fluid. Tiny popliteal cyst. CT/CT knee LT BEAR [id number] IMPRESSION: Images obtained for preoperative purposes.
== END 2025-07-20 13:08 | disposition home or self-care (01) ==
LOC: RAD 13:08
PROVIDERS: PCP Family Medicine; Visit Provider Physician Assistant
DX: M17.12 Unilateral primary osteoarthritis, left knee (principal)
CPT/HCPCS: 73700

== ENCOUNTER 2025-07-30 09:22 | Observation (INO) | payer OTHER, SELFPAY ==
[2025-07-30] VITALS (13 sets, daily range): BP systolic 82–154; BP diastolic 56–84; PULSE 70–97; RESP 16–20; TEMP 36.3–37.1; O2SAT 90–97; BMI 38.2
[2025-07-30] MEDS: acetaminophen 1,000 MG/100 ML PIGGYBACK 400 MG IV ×2 (06:18→20:44)
[2025-07-30 06:38] LABS: Hematocrit 42.3 % (36-47); Hemoglobin 13.70 g/dL (11.27-16.99); Mean Corpuscular HGB Conc 32.4 g/dL (30-55); Mean Corpuscular Hemoglobin 29.2 pg (27-33); Mean Corpuscular Volume 90.2 fl (85-98); Nucleated Red Blood Cells % 0 %; Platelet Count 305 10^3/cmm (157-399); Red Blood Count 4.69 10^6/uL (3.85-5.65); White Blood Count 6.50 10^3/uL (3.29-11.43)
--- NOTE | 2025-07-30 06:49 | PC.NURSE ---
Pt prepped for block for L TKA pt time out completed by Anesthesia ultrasound was used to locate nerve bundle to be blocked with 0.5% ropivicaine. During initial placement 3cc were placed on the fourth aspiration after needle repositioning blood returned in the tubing. Needle was removed and blood was flushed out. Dr asked pt if it was ok to proceed with block in a new location away from previous placement attempt. pt agreed and the procedure continued with remaining 20 cc being placed in the new location.
--- NOTE | 2025-07-30 07:01 | W.PM.OPSUD ---
Surgery/Procedure H&P Update DATE OF PROCEDURE: July 30, 2025 DATE H&P PERFORMED: 07/10/25 H&P UPDATE INFORMATION: I have reviewed H&P completed within last 30 days, I have examined patient prior to procedure and No changes to prior documentation PREOP DIAGNOSIS: Left knee DJD PRIMARY INDICATION FOR PROCEDURE: Left Knee DJD PLANNED PROCEDURE: Operation Date: 07/30/25 07:00 Proposed Procedures p LEFT Juan J Robot Total Knee Arthroplasty(Left) - Petey Kaiser DO
[2025-07-30 07:05] LABS: Blood Urea Nitrogen 11 mg/dL (8-23); Calcium 9.3 mg/dL (8.5-10.5); Carbon Dioxide 25 mmol/L (22-29); Chloride 105 mmol/L (98-107); Creatinine Clr Calc Pharmacy 87.2932; Glucose 135 mg/dL (65-115); Osmolality Calculated 293 mOsm/kg (285-295); Sodium 141 mmol/L (136-145)
--- NOTE | 2025-07-30 07:06 | ANES.PREANE2 ---
Pre-Anesthetic Assessment Height/Weight: Height 1.7 m Weight 104.78 kg Temp Pulse Resp BP Pulse Ox O2 Del Method 97.4 F L 70 16 154/84 96 Room Air 07/30/25 06:04 07/30/25 06:04 07/30/25 06:04 07/30/25 06:04 07/30/25 06:04 07/30/25 06:04 Preop Diagnosis: Left knee DJD Operation Date: 07/30/25 07:00 Proposed Procedures p LEFT Juan J Robot Total Knee Arthroplasty(Left) - Petey Kaiser DO Familial anesthetic complications: None Was Beta Daniel taken within 24 hours: N/A Was Clonidine taken within 24 hours: N/A Last intake: Intake Last Liquid Date 07/29/25 Last Liquid Time 22:00 Last Solid Date 07/29/25 Last Solid Time 19:00 Social No alcohol and No tobacco Exam alert, oriented x 3, clear to auscultation bilaterally and regular rate & rhythm Airway Mallampati: Class II Dentition: full CV/HEM Hypertension Metabolic Diabetes Mellitus and Hyperlipidemia Anesthetic Plan ASA status: 3 Anesthesia: Regional (specify below) Other: spinal + regional Risk of > 500 ml blood loss (7ml/kg in children): No Medications/Allergies Home Medications ?Medication ?Instructions ?Recorded ?Confirmed ?Last Taken ?Type ibuprofen 200 mg capsule 200 mg PO Q6H PRN Pain 05/24/23 07/30/25 07/22/25 History dulaglutide 1.5 mg/0.5 mL 1.5 mg (0.5 mL) SUBCUT .WEEKLY 28 01/25/25 07/30/25 07/19/25 Rx subcutaneous pen injector days #2 mL acetaminophen 650 mg 650 mg PO Q8H 04/17/25 07/30/25 07/29/25 History tablet,extended release (Tylenol 8 Hour) meloxicam 15 mg tablet 15 mg PO ONCE 07/17/25 07/30/25 07/22/25 History Allergies Allergy/AdvReac Type Severity Reaction Status Date / Time No Known Allergies Allergy Verified 07/17/25 07:55 Current Medications Generic Name Dose Route Start Last Admin Trade Name Freq PRN Reason Stop Dose Admin Sodium Chloride 1,000 mls @ 30 mls/hr 07/30/25 06:00 07/30/25 06:18 Sodium Chloride 0.9% IV 07/31/25 05:59 30 mls/hr .Q24H FRANCOIS Administration PFSH Anesthesia Medical History Hyperlipidemia Hypertension Type 2 diabetes mellitus Surgical History Status post total right knee replacement using cement H/O lateral meniscus repair of right knee Status post colonoscopy with polypectomy (12/17/21) Family History Family/Other Diabetes Father Hypertension Mother Thyroid disease hypothyroidism Denies family history of Clotting disorder Chronic kidney disease (CKD) Bleeding disorder Cancer Stroke Social History Smoking and tobacco/nicotine status: never used tobacco/nicotine Alcohol intake: never Substance/Drug Use: never Data Anesthesia 07/30/25 06:23 07/30/25 06:23 Short CBC 07/30/25 Range/Units 06:23 WBC 6.50 (3.29-11.43) 10^3/uL Hgb 13.70 (11.27-16.99) g/dL Hct 42.3 (36-47) % MCV 90.2 (85-98) fl Plt Count 305 (157-399) 10^3/cmm Neut % (Auto) 50.6 % Neut # (Auto) 3.29 (1.8-7.7) 10^3/uL BMP 07/30/25 06:23 Sodium 141 Chloride 105 Carbon Dioxide 25 BUN 11 Creatinine 0.8 Calcium 9.3 Anesthesia Procedures Nerve Block Nerve Block 1: Main Anesthesia: spinal anesthesia block Time Out Performed: Yes Consent: requested by attending/covering physician, from patient, from other, risks and benefits reviewed and patient agrees to proceed Nerve block location: adductor canal (L) Anesthesia monitors applied: pulse oximetry, EKG, BP cuff and oxygen Nerve block position: supine Anesthetic Used: ropivicaine 0.5% (30 ml) and with decadron (4 mg) Ultrasound used to: recognize landmarks and visualize and ID femerol nerve Interscalene/Femoral BLK: 4 stimuplex 21 g needle used for position and inplane approach, visualize local anesthetic spread and no vascular puncture identified Injection: neg aspiration of heme (Aspiration of heme during 1st attempt- needle removed and flushed and second puncture without complications) Patient Tolerated Procedure: well Complications: none
[2025-07-30 07:11] LABS: Anion Gap 14.9 (5-19); Potassium 3.9 mmol/L (3.5-5.1)
[2025-07-30] MEDS: ceFAZolin 2,000 MG in sodium chloride 0.9% (plus) 50 ML 100 MG IV ×2 (07:13→16:10)
[2025-07-30] MEDS: tranexamic acid 1,000 mg/10mL SDV 1000 MG IV (07:21)
[2025-07-30] MEDS: tranexamic acid 1,000 mg/10mL SDV 1000 MG XX (08:15)
[2025-07-30] MEDS: ROPivacaine 0.2% Premix 100 mL 200 MG INTRA-ARTI (08:15)
--- NOTE | 2025-07-30 08:56 | W.PM.BPON ---
Date of Procedure: 07/30/2025 Surgeon: Petey Kaiser DO Customer Service Clerk(s): Nestor Kaiser PA-C Procedure(s) performed: Left total knee arthroplasty?Juan J robotic assisted Findings of the procedure(s): Patient tolerated procedure well without issues or complications taken recovery stable condition Estimated blood loss: 25 mL Specimen(s) removed: Tibia femur and patellar bone cuts removed Post-operative diagnosis: Left knee DJD
--- NOTE | 2025-07-30 09:00 | P.OP_ITS ---
Operative Report Date of procedure: July 30, 2025 Surgeon: Petey Kaiser DO Wafer Production Worker: Nestor Kaiser PA-C: PA was necessary for assistance in this case with leg positioning retraction and protection of neurovascular structures as well as assistance in implantation wound closure and dressing application. Procedure: Preoperative diagnosis: Left knee degenerative joint disease Post-op diagnosis: Same Procedure done: Left total knee arthroplasty, cemented?robotic assisted Juan J Implants: Dong triathlon size 4 femur CR cemented?left [place] triathlon size? 3 tibia universal baseplate cemented Dong triathlon symmetric patella size 33 mm Dong triathlon polyethylene 10mm Surgeon: Petey Kaiser DO Estimated blood?loss: 25 mL Tourniquet 50minutes IV fluids: 800mL Urine output: 150 mL Complications: None Condition: stable Disposition: floor Brief History: Patient is a 65-year-old female with with chronic?left knee degenerative joint disease.? Patient has been worked up in the outpatient setting in the orthopedic office at this point time through shared decision making given? [id number] arthritis as well as failed conservative treatment, and pt would?like to proceed with a?left total knee arthroplasty.? Through shared decision making elected to proceed with surgical intervention for?left total knee arthroplasty?Juan J robotic assisted.? We talked about continued conservative treatment and surgical intervention as far as the risk benefits complications alternatives surgical and nonsurgical treatment options.? At this point time understanding patient risks with surgery patient agrees to proceed with surgical intervention.? Once again? risk with surgery include but are not?limited to make it better make it worse blood clot, heart attack, stroke, on the table, infection, injury to nerves or vessels, persistent pain, arthrofibrosis, implant failure.? Understanding these risks patient agrees to proceed with surgical intervention consent was obtained in the preoperative holding.? All questions answered. Procedure: Patient was seen and evaluated in the preoperative holding area.? Consent was reviewed and signed with patient with plan for?left total knee arthroplasty.? All questions answered.? Correct extremity marked.? Patient seen and evaluated by the anesthesia department and once cleared for surgery was taken back to the operative suite.? Patient was placed into a supine position on the OR table.? All bony prominences were well-padded.? Patient was appropriately secured to the bed.? Patient underwent anesthesia per the anesthesia department.? Patient received spinal anesthesia and? Golden catheter was placed.? A nonsterile tourniquet was applied to the?left thigh.? At this point in time a final timeout performed.? Patient received appropriate preoperative antibiotics and TXA. Next the?left?lower extremity was then prepped and draped in standard orthopedic fashion. Esmarch tourniquet was used exsanguinate the?left?lower extremity.? Tourniquet was insufflated to 250 mmHg. A standard anterior incision was made over midline of the knee.? Sharp scalpel excision through skin and subcutaneous tissue full-thickness skin flaps were made.? Fascia was elevated off of the extensor retinaculum was stable with medial parapatellar arthrotomy was then made.? The performed standard sequential releases..? Immediately on entry into the joint patient was found to have severe eburnated bone and tricompartmental arthritic changes noted.? With significant osteophyte formation.? Next the the patella was then stuffed and the knee was then flexed.?? Lindy was placed superiorly around the anterior aspect of the femur this was freed of synovium and I subsequently then placed by 2 femur pins to establish my femur arrays for the Juan J robot.? These were then placed bicortically and? femur array was then appropriately secured with appropriate visualization.? Next attention was turned towards the tibial rays.? These were then drilled sequentially bicortically in parallel fashion and intraincisional.? I then placed my guide as well as my tibial array on in place.? This was appropriately secured and had excellent visualization with the Juan J robot.? Next the tibial checkpoint as well as femur checkpoint were then placed.? At this point time I then subsequently established my head center as well as my medial?lateral malleoli as well as my checkpoints.? Next utilizing standard Juan J technology I then mapped out the appropriate points and confirmation points around the femur as well as the tibia in standard fashion.? Once this was then done I then removed all osteophytes in preparation for dynamic testing.? All osteophytes were removed as well as I removed the ACL and the PCL was excised due to its significant tearing and degeneration noted.? At this point time the knee was brought into full extension and we performed our standard evaluation of our gap balancing stressing his?ligaments and extension as well as flexion appropriate adjustments were made to have appropriate gap balancing in both flexion and extension.? This plan for final cuts were made to correct patient's deformity up to patient's ligamentous tolerances.? We get a preoperative plan evaluating our implants which was a size 4 femur and a size 3 tibia.? Next we brought in the Juan J robot and sequentially made our femur cuts.? All excess bony cuts were then removed.? Finally we made our tibial cut.? Once this was done a standard PCL retractor was then placed into this position I excised the medial and?lateral meniscus.? The tibial cut was then subsequently removed all excess bony debris was removed.? I then utilized a?lamina stone spreader operator and remove the posterior osteophytes.? At this point time sized the tibia and confirmed this was a size 3.? I utilized our blunt probe to establish rotation of tibial implant.? Once this was done I then placed my tibia size 3 trial in appropriate position and then subsequently placed tibial pins to hold this into place placed and trialed up t a size 10mm poly as well as a size 4 femur which was appropriately impacted in place knee was then subsequently brought into e xtension. Trials were then assessed,? this was stable with varus valgus stress in extension as well as had symmetrical translation when brought into flexion demonstrating symmetrical gaps. I had excellent balance gaps in flexion and extension with varus and valgus stresses.? At this point I was satisfied with these implants these were then verified and opened on the back table size 3 tibia, size 4 femur,? size 10 mm polythickness.? We did confirm appropriate gap balancing and stresses as well as alignment utilizing? Juan J and were satisfied with this plan.? ?At this point time with my trials in place I then towel clip the patella everted this made appropriate measurements subsequently utilizing freehand technique performed by patellar resurfacing this was confirmed to be appropriate resection and subsequently sized to be a 33 mm symmetric.? My drill peg guides were then clamped and appropriate position and appropriate position in the patella for appropriate tracking and parallel with the joint.? Pegs were drilled trial implant was placed and the knee was then subsequently ranged and found to have excellent patellar tracking.? Femur pegs were then drilled.? ? At this point time all of our trial implants were removed.? All checkpoints as well as guidepins and arrays were removed and appropriate counts made Satisfied with our tibial placement rotation I then utilized the keel punch and prepped the tibia.? The wound bed? was thoroughly irrigated and dried and prepped for cementation.? Cement was mixed on the back table.? Once cement was ready this was then covered onto the tibia and the tibial baseplate was then impacted and all excess cement was removed.? Next the polyethylene was then impacted into place on the tibial baseplate.? Next cement was placed onto the femur as well as under the femur implants and impacted in to place and all excess cement was extruded and removed.? Knee was taken into full extension? to clear all excess cement was removed.? Warm saline was placed over the joint.? I then towel clip patella and dried for cementation. cemented the patella into place.? This was all clamped and the cement was allowed to cure.? Thorough irrigation performed with pulse?lavage.? I then placed my periarticular injection while the cement was curing.? Once cured the knee was taken through range of motion and had excellent stability and gaps were balanced in flexion and extension.? Tourniquet was then deflated. hemostasis satisfactory with electrocautery.? Vancomycin powder was placed in wound bed for antibiotic infection prophylaxis. Next I then samara carlos closed the capsule with Ethibond suture as well as a running strata fix suture.? Knee was then taken through range of motion 30 times.? Next the skin was then closed in?layered fashion of running stratifix sutures of deep and subcutenous tissue and skin.? ?closed in flexion and Prineo glue was then placed over the incision this allowed to cure.? Incision was covered with kofi incisional VAC dressing, with ABDs soft roll and Claus wrap.? Patient was then awakened from anesthesia and taken to PACU in stable condition. Disposition: Patient taken to PACU in stable condition will be admitted to the floor for pain control PT/OT weight-bear as tolerated?left?lower extremity dressing changes as needed, DVT prophylaxis. Pain control. Patient will receive appropriate postoperative antibiotics. patient will be seen today by the internal medicine team for medical management.? Patient will follow up with the office in 2 weeks.? Patient understands agrees with current plan.? All questions answered.
--- NOTE | 2025-07-30 09:07 | XRR_ITS ---
PROCEDURE INFORMATION: Exam: XR Left Knee Exam date and time: 07/30/2025 09:18 AM Age: 65 years old Clinical indication: Device placement; Joint replacement hardware; Prior surgery; Surgery date: Post-operative (0-2 days); Surgery type: Post L tka, ; additional info: Post L tka, do in pacu TECHNIQUE: Imaging protocol: Radiologic exam of the left knee. Views: 1 or 2 views. COMPARISON: CT knee LT [facility] [id number] 07/20/2025 01:16 PM FINDINGS: Bones/joints: Left knee prosthesis. Normal alignment. No acute fracture. Soft tissues: Postoperative changes with air in the joint space and anterior soft tissues. XR/XR knee LT 1-2V [id number] IMPRESSION: Postop left knee prosthesis. Air in the joint space and soft tissues from recent surgical intervention.
--- NOTE | 2025-07-30 09:18 | PM.PACU ---
PACU note Narrative: Patient is a 65-year-old female who just underwent a left total knee arthroplasty. Pt transferred to PACU in stable condition. Dressing is dry. pt is awake and alert. pt can wiggle toes and plantarflex and dorsiflex foot. pt able to perform straight leg raise, Femoral nerve intact. Distal pulses are palpable toes are warm and well-perfused. Cap refill is normal and under 2 seconds. Sensation to foot is intact. Pain is controlled. Exam: awake Disposition: admitted
--- NOTE | 2025-07-30 09:35 | ANE.PACU2 ---
Inpatient post-anesthesia follow up: Airway intact: Yes Vital signs: Temperature 97.7 F Pulse Rate 97 Respiratory Rate 18 Blood Pressure 112/68 Pulse Oximetry 96 Oxygen Delivery Me thod Room Air Oxygen Flow Rate 8 Fraction of Inspir ed Oxygen Hydration adequate: Yes Nausea and vomiting: No Pain level: 1 Mental status: Baseline
--- NOTE | 2025-07-30 09:45 | PC.NURSE ---
accepted into room 266 with RN at side - no distress upon this nurse exiting care - BP 94/64 - pulse 84 - 93% temp 97.7
--- NOTE | 2025-07-30 09:50 | PM.CONSULT ---
Providers/Reason For Consult Consulting Physician/Specialty*: Hospitalist Reason for Consult*: Medical management Attending Physician: Petey Kaiser DO Primary Care Provider: Mindy Butterfield MD History of Present Illness History of Present Illness Nehal Gant is a 65 year old female with a history of diabetes mellitus and osteoarthritis (prior right total knee arthroplasty) who underwent an elective left total knee arthroplasty this morning. Estimated blood loss was 25 mL. Received 800 mL of fluids intraoperatively. Urine output reported as 150 mL. Plans discussed for transfer to an inpatient bed pending further assessment by physical therapy and occupational therapy; weight bearing as tolerated. Reports doing okay without recent fever, chills, sneezing, coughing, nausea, vomiting, or diarrhea. For diabetes, home dulaglutide injection use was confirmed; inpatient plan to hold dulaglutide and monitor blood glucose with a consistent carbohydrate diet was discussed. This morning?s blood glucose was 135. Prior laboratory data referenced include a complete blood count (CBC) with hemoglobin 13.7 and platelets 305, and a basic metabolic panel (BMP) with sodium 141, potassium 3.9, chloride 105, bicarbonate 25, creatinine 0.8. Reassessment of blood counts is planned for tomorrow to screen for post-operative anemia. Tentative disposition plan is to return home. Review of Systems Const: Denies: fever(s), chills, body aches or malaise ENMT: Denies: throat pain Card: Denies: chest pain, edema, pre-syncope or dyspnea on exertion Resp: Denies: dyspnea, productive cough, change in phlegm color or hemoptysis GI: Denies: abdominal pain, nausea, vomiting, diarrhea, constipation, hematochezia or melena : Denies: flank pain, urinary frequency or hematuria Musc: Denies: back pain, joint swelling or joint redness Skin/Breast: Denies: rash or new lesions Neuro: Denies: headache(s) or confusion Medications/Allergies Home Medications ?Medication ?Instructions ?Recorded ?Confirmed ?Last Taken ?Type ibuprofen 200 mg capsule 200 mg PO Q6H PRN Pain 05/24/23 07/30/25 07/22/25 History dulaglutide 1.5 mg/0.5 mL 1.5 mg (0.5 mL) SUBCUT .WEEKLY 28 01/25/25 07/30/25 07/19/25 Rx subcutaneous pen injector days #2 mL acetaminophen 650 mg 650 mg PO Q8H 04/17/25 07/30/25 07/29/25 History tablet,extended release (Tylenol 8 Hour) meloxicam 15 mg tablet 15 mg PO ONCE 07/17/25 07/30/25 07/22/25 History Allergies Allergy/AdvReac Type Severity Reaction Status Date / Time No Known Allergies Allergy Verified 07/17/25 07:55 PFSH Acute PFSH: Medical History Hyperlipidemia Hypertension Type 2 diabetes mellitus Surgical History Status post total right knee replacement using cement H/O lateral meniscus repair of right knee Status post colonoscopy with polypectomy (12/17/21) Family History Family/Other Diabetes Father Hypertension Mother Thyroid disease hypothyroidism Denies family history of Clotting disorder Chronic kidney disease (CKD) Bleeding disorder Cancer Stroke Social History Smoking and tobacco/nicotine status: never used tobacco/nicotine Alcohol intake: never Substance/Drug Use: never Vitals/I&O/Wt Last Vital Signs Temp 97.9 F 07/30/25 09:25 Pulse 85 07/30/25 09:30 Resp 18 07/30/25 09:30 BP 95/60 07/30/25 09:30 Pulse Ox 92 07/30/25 09:30 O2 Del Method Room Air 07/30/25 09:30 O2 Flow Rate 8 07/30/25 09:10 07/29/25 07/30/25 07/30/25 22:59 06:59 14:59 Intake Total 100 / 100 100 / 100 Output Total 175 / 175 Balance 100 / 100 -75 / -75 Weight last 48 hrs Weight 104.78 kg Physical Exam Const: COMMON NORMALS: patient oriented x3 and alert GENERAL APPEARANCE: cooperative ORIENTATION/CONSCIOUSNESS: Yes awake HENMT: COMMON NORMALS: oropharynx normal Neck/C-Spine: COMMON NORMALS: no JVD Resp: COMMON NORMALS: normal respiratory effort and clear to auscultation bilaterally AUSCULTATION: clear to auscultation bilaterally Cardio: COMMON NORMALS: no JVD, regular rhythm, S1 normal heart sound present, S2 normal heart sound present and No murmurs present (Cardio) RHYTHM: regular rhythm HEART SOUNDS: S1 normal heart sound present and S2 normal heart sound present GI: COMMON NORMALS: Normal to inspection, nondistended, normoactive bowel sounds present, Soft to palpation and non-tender PALPATION: Yes Soft to palpation Extremity: COMMON NORMALS: no joint enlargement and no pedal edema OTHER: L knee in post op dressing Neuro: COMMON NORMALS: patient oriented x3 and moves all extremities SENSORIUM/ORIENTATION: Yes alert Skin: COMMON NORMALS: no rashes or lesions noted GENERAL SKIN EXAM: no rashes or lesions noted Urinary Catheter Management: Golden: Cath Placed During This Visit: yes Urinary Catheter Date of Insertion: 07/30/25 Urinary Catheter Time of Insertion: 07:20 Data 07/30/25 06:23 07/30/25 06:23 A&P Assessment and plan 1. S/P total knee arthroplasty: lective left total knee arthroplasty performed this morning with estimated blood loss 25 mL; received 800 mL fluids; urine output 150 mL. Plans for transfer to inpatient bed pending PT/OT; weight bearing as tolerated. CBC to be rechecked tomorrow to assess for post-operative anemia. Tentative plan to return home. - Transfer to inpatient bed pending PT/OT assessment. - Allow weight bearing as tolerated. - Reassess blood counts tomorrow to check for anemia. - Use incentive spirometer about every hour to take deep breaths to help prevent pneumonia. - Tentative disposition plan to return home. - Pain control with acetaminophen, hydrocodone as needed for moderate pain, IV hydromorphone as needed for severe breakthrough pain. 2. Type 2 diabetes mellitus: Known diabetes on home dulaglutide injections. In-hospital plan to hold dulaglutide and use low-dose insulin as needed with consistent carbohydrate diet; monitor blood glucose. Morning blood glucose 135. - Hold dulaglutide while inpatient. - Monitor [id number]-[id number] blood glucose. - Use sliding-scale insulin. - Order consistent carbohydrate diet. PDMP PDMP Reviewed: Not Reviewed Consult Attestations Medical Necessity Statement: Continue postoperative care after left TKA and High MDM includes amount and/or complexity of data reviewed/ordered [ resulted lab(s)/test(s), ordered lab(s)/test(s) and other healthcare professional discussion] and described risk of complication, morbidity or mortality of management as documented Diagnoses S/P total knee arthroplasty Z96.659 Type 2 diabetes mellitus E11.9
[2025-07-30] MEDS: tranexamic acid 1,000 MG/100 ML PREMIX 600 MG IV (13:47)
[2025-07-30] MEDS: calcium carb-vit d 600mg/400unit 1 Tablet 1 EACH PO (16:44)
[2025-07-31] MEDS: ceFAZolin 2,000 MG in sodium chloride 0.9% (plus) 50 ML 100 MG IV ×2 (00:17→07:02)
[2025-07-31 03:00] VITALS: BP 118/74; PULSE 78; RESP 16; TEMP 36.6; O2SAT 97
[2025-07-31 04:52] LABS: Hematocrit 38.7 % (36-47); Hemoglobin 12.50 g/dL (11.27-16.99); Mean Corpuscular HGB Conc 32.3 g/dL (30-55); Mean Corpuscular Hemoglobin 29.2 pg (27-33); Mean Corpuscular Volume 90.4 fl (85-98); Nucleated Red Blood Cells % 0 %; Platelet Count 290 10^3/cmm (157-399); Red Blood Count 4.28 10^6/uL (3.85-5.65); White Blood Count 14.53 10^3/uL (3.29-11.43)
[2025-07-31] MEDS: acetaminophen 1,000 MG/100 ML PIGGYBACK 400 MG IV (05:00)
[2025-07-31] MEDS: sennosides-docusate Tablet 2 TAB PO (05:01)
[2025-07-31] MEDS: calcium carb-vit d 600mg/400unit 1 Tablet 1 EACH PO (05:01)
[2025-07-31 05:21] LABS: Anion Gap 15.3 (5-19); Blood Urea Nitrogen 12 mg/dL (8-23); Calcium 9.1 mg/dL (8.5-10.5); Carbon Dioxide 24 mmol/L (22-29); Chloride 105 mmol/L (98-107); Creatinine Clr Calc Pharmacy 89.9039; Glucose 140 mg/dL (65-115); Osmolality Calculated 292 mOsm/kg (285-295); Potassium 4.3 mmol/L (3.5-5.1); Sodium 140 mmol/L (136-145)
[2025-07-31 07:38] VITALS: BP 153/72; PULSE 69; RESP 17; TEMP 36.6; O2SAT 95
--- NOTE | 2025-07-31 08:04 | PM.PN ---
Subjective Subjective: She reports was feeling well this morning. Denies any nausea or other discomfort. Is not short of breath, no cough. Has been using the incentive spirometer. Has gotten up and ambulated with physical therapy without issues. Vitals/I&O/Wt Last Vital Signs Temp 97.9 F 07/31/25 07:38 Pulse 69 07/31/25 07:38 Resp 17 07/31/25 07:38 BP 153/72 07/31/25 07:38 Pulse Ox 95 07/31/25 07:38 O2 Del Method Room Air 07/31/25 07:38 O2 Flow Rate 8 07/30/25 09:10 07/30/25 07/31/25 07/31/25 22:59 06:59 14:59 Intake Total 1490 / 1830 150 / 1980 Output Total 850 / 1025 350 / 1375 250 / 250 Balance 640 / 805 -200 / 605 -250 / -250 Weight last 48 hrs Weight 110.677 kg Weight 110.677 kg Weight 104.78 kg Physical Exam Narrative: Sitting up in the chair. In good spirits. Const: COMMON NORMALS: patient oriented x3 and alert GENERAL APPEARANCE: cooperative ORIENTATION/CONSCIOUSNESS: Yes awake HENMT: COMMON NORMALS: oropharynx normal Neck/C-Spine: COMMON NORMALS: no JVD Resp: COMMON NORMALS: normal respiratory effort and clear to auscultation bilaterally AUSCULTATION: clear to auscultation bilaterally Cardio: COMMON NORMALS: no JVD, regular rhythm, S1 normal heart sound present, S2 normal heart sound present and No murmurs present (Cardio) RHYTHM: regular rhythm HEART SOUNDS: S1 normal heart sound present and S2 normal heart sound present GI: COMMON NORMALS: Normal to inspection, nondistended, normoactive bowel sounds present, Soft to palpation and non-tender PALPATION: Yes Soft to palpation Extremity: COMMON NORMALS: no joint enlargement and no pedal edema OTHER: L leg in post op dressing. No cyanosis or mottling of the foot Neuro: COMMON NORMALS: patient oriented x3 and moves all extremities SENSORIUM/ORIENTATION: Yes alert Skin: COMMON NORMALS: no rashes or lesions noted GENERAL SKIN EXAM: no rashes or lesions noted Urinary Catheter Management: Golden: Cath Placed During This Visit: yes, but has since been removed by the nurse Reason for Continuing Indwelling Catheter: Required Immobilization for Trauma or Surgery or Anesthesia Urinary Catheter Date of Insertion: 07/30/25 Urinary Catheter Time of Insertion: 07:20 Date Urinary Catheter Removed: 07/31/25 Time Urinary Catheter Discontinued: 05:12 Data 07/31/25 04:29 07/31/25 04:29 A&P Assessment and plan 1. S/P total knee arthroplasty: She is doing well postoperatively. Discussed with her mild leukocytosis of 14.53. She does not seem to have any symptoms to suggest acute infection. She reports she is feeling well. Possibly stress/surgery related. Reviewed hemoglobin, 12.5. Reviewed platelets 290. She has worked with physical therapy. She is started on Eliquis for VTE prophylaxis. I reviewed Ortho and anesthesia reassessment note. Reviewed knee x-ray. Pending orthopedic reassessment with likely return home today. Discussed with her okay from hospitalist side to return home with follow-up with primary provider. - Use incentive spirometer about every hour to take deep breaths to help prevent pneumonia. - DC IV fluid - Tentative disposition plan to return home. - Pain control with acetaminophen, hydrocodone as needed for moderate pain, IV hydromorphone as needed for severe breakthrough pain. 2. Type 2 diabetes mellitus without complication, without long-term current use of insulin: Reviewed blood and POC glucose. Reviewed BMP. resume dulaglutide at discharge. Continue consistent carbohydrate diet. PDMP PDMP Reviewed: Not Reviewed Attestations Medical Necessity Statement*: Anticipated return home today. Diagnoses S/P total knee arthroplasty Z96.659 Type 2 diabetes mellitus without complication, without long-term current use of insulin E11.9 Diabetes mellitus complication status: without complication Diabetes mellitus intermediate designer insulin use: without custodial use
[2025-07-31] MEDS: APIXABAN 2.5 MG TABLET PO (08:40)
[2025-07-31] MEDS: multivitamin therapeutic Tablet 1 TAB PO (08:40)
--- NOTE | 2025-07-31 09:44 | PC.OT ---
Pt seen for OT treatment session 09:28 to 09:34 with no reports of pain. Pt reports having a stiff leg. Pt transfers from sitting in chair to standing with FW walker with SBA. Pt functionally ambulates to sink with SBA with FW walker. Pt washes her face independently standing at sink with FW walker. Pt requires SBA to functionally ambulate from sink to chair with SBA. Pt sits in chair with SBA. Pt reports no pain after tx. Pt demonstrates good safety awareness.
--- NOTE | 2025-07-31 11:03 | PC.CHAP ---
Pastoral Care Encounter/Spiritual Assessment Type of Contact [] Declined street cleaner visit [] Patient/Family/Request visit [] Outpatient visit [] Follow-up visit [] Physician referral [] Code/Alert [x] Routine visit [] Staff referral [] Actively dying [] Patient sleeping [] Family support [] [] Out of room [] Palliative care [] [] Receiving care in room [] Pre-surgical visit [] Trauma [] Long length of stay [] ICU visit [] Other: Relational/Emotional Strength [x] Patient feels connected with others/family/visitors/staff [] Distress [] Loneliness/isolation [] Abandonment Spirituality of Patient [x] Person of Estefania [] Attends [employer] of their [place] [x] Believes in Prayer [] Reads Bible or Restoration materials [] There are Spiritual issues to be addressed Twisting Frame Fixer Interventions [x] Prayer [x] Active listening [] Non-anxious presence [x] Spiritual/emotional support [] Crisis/trauma care [] Spiritual counseling [] Bereavement support [] Provided bereavement packet [] Provided Bible/devotional materials [] Provided toy/stuffed animal, coloring book to patient or family member [] Provided Communion [] Anointing/[place] [] Salvation [x] Completed spiritual assessment [] Other: Impact on Illness or Injury [] Angry [] Fearful [] Anxious [] Often cries [] Exhaustion [] Unable to work [] Unable to attend buddhist [] Unable to walk/stand [] Unable to read [] Unable to drive [] Unable to eat/drink [] Unable to sleep [] Unable to be with family [] Patient intubated [] Other: Summary Time spent with patient 5 min
[2025-07-31 11:26] VITALS: BP 152/78; PULSE 64; RESP 16; TEMP 36.4; O2SAT 98
--- NOTE | 2025-07-31 12:42 | P.DS_ITS ---
Discharge Providers Date of Admission: 07/30/25 09:22 Date of Discharge: July 31, 2025 Attending Provider at Admission: Petey Kaiser DO Attending Provider at Discharge: Petey Kaiser DO Consults: Hospitalist?Dr. Watkins Primary Care Provider: Mindy Butterfield MD Diagnoses at Discharge Discharge Diagnosis 1. S/P total knee arthroplasty: 2. Type 2 diabetes mellitus without complication, without long-term current use of insulin: Reason for Visit Reason for Visit: M17.12 Brief History: Status post left total knee arthroplasty?Juan J robotic assisted Hospital Course Hospital Course Patient presented to the preoperative holding area with plan for left total knee arthroplasty after patient has been worked up in the outpatient setting for failed conservative treatment of [left] knee degenerative joint disease. Once cleared by anesthesia for surgery patient subsequently was taken back to the operative suite underwent anesthesia per anesthesia department and then subsequently underwent a [left] total knee arthroplasty. Procedure was performed without any complications patient was taken to PACU in stable condition patient recovered well in PACU and then was admitted to the floor postoperatively internal medicine was consulted and on board for medical management and assistance with care. Patient received appropriate PT/OT, postoperative antibiotics, postoperative TXA, pain control, postoperative DVT prophylaxis. Elevation and ice. Patient encouraged for knee range of motion allowed weightbearing as tolerated to the operative lower extremity. Dressing was changed as needed, labs were monitored daily. Patient recovered well postoperatively and worked well and progressed well with therapy.. It was determined on postoperative day [1] the patient was stable for discharge from an orthopedic standpoint and medicine. Patient was comfortable with discharge and plan was discharged home. Patient received appropriate discharge instructions as well as pain medication and DVT prophylaxis postoperatively. Given appropriate instructions for dressing management. Patient will follow-up with Dr. Kaiser/orthopedics in the office in 2 weeks. All questions answered. Understand if there is any issues questions or concerns and contact the office. Physical Exam Narrative: left knee examination: Dressing on in place, clean dry and intact. No evidence of saturation. Patient has normal postoperative swelling and tenderness to palpation to the knee. Compartments are soft compressible,'s calf soft and nontender. Sensations intact to light touch distally. Distal pulses are palpable. Patient is able to wiggle toes as well as plantarflex and dorsiflex ankle. Urinary Catheter Management: Golden: Cath Placed During This Visit: yes, but has since been removed by the nurse Reason for Continuing Indwelling Catheter: Required Immobilization for Trauma or Surgery or Anesthesia Urinary Catheter Date of Insertion: 07/30/25 Urinary Catheter Time of Insertion: 07:20 Date Urinary Catheter Removed: 07/31/25 Time Urinary Catheter Discontinued: 05:12 Discharge Data Studies Completed and Pending Completed Studies During Hospitalization Category Date Time Status XR knee LT 1-2V 99514 Routine Exams 07/30/25 09:07 Completed Pending at discharge Category Date Time Status Basic Metabolic Panel AM LABS Lab 08/01/25 04:00 Ordered Basic Metabolic Panel AM LABS Lab 08/02/25 04:00 Ordered Complete Blood Count w/Auto AM LABS Lab 08/01/25 04:00 Ordered Complete Blood Count w/Auto AM LABS Lab 08/02/25 04:00 Ordered Radiology Impressions Knee X-Ray 07/30/25 09:07 IMPRESSION: Postop left knee prosthesis. Air in the joint space and soft tissues from recent surgical intervention. Laboratory Results WBC 14.53 10^3/uL (3.29-11.43) H 07/31/25 04:29 RBC 4.28 10^6/uL (3.85-5.65) 07/31/25 04:29 Hgb 12.50 g/dL (11.27-16.99) 07/31/25 04:29 Hct 38.7 % (36-47) 07/31/25 04:29 MCV 90.4 fl (85-98) 07/31/25 04:29 MCH 29.2 pg (27-33) 07/31/25 04:29 MCHC 32.3 g/dL (30-55) 07/31/25 04:29 RDW 13.5 % (12.1-15.1) 07/31/25 04:29 Plt Count 290 10^3/cmm (157-399) 07/31/25 04:29 MPV 10.5 fL (7.4-10.4) H 07/31/25 04:29 Neut % (Auto) 78.1 % 07/31/25 04:29 Lymph % (Auto) 14.1 % 07/31/25 04:29 [place] % (Auto) 7.0 % 07/31/25 04:29 Eos % (Auto) 0.1 % 07/31/25 04:29 Baso % (Auto) 0.2 % 07/31/25 04:29 Neut # (Auto) 11.35 10^3/uL (1.8-7.7) H 07/31/25 04:29 Lymph # (Auto) 2.1 10^3/uL (0.8-4.8) 07/31/25 04:29 [place] # (Auto) 1.0 10^3/uL (0.2-0.9) H 07/31/25 04:29 Eos # (Auto) 0.0 10^3/uL (0.0-0.8) 07/31/25 04:29 Baso # (Auto) 0.0 10^3/uL (0.0-0.1) 07/31/25 04: Nucleated RBC % (auto) 0 % 07/31/25 04: Nucleated RBCs # 0.0 /100WBC 07/31/25 04:29 Sodium 140 mmol/L (136-145) 07/31/25 04:29 Potassium 4.3 mmol/L (3.5-5.1) 07/31/25 04:29 Chloride 105 mmol/L (98-107) 07/31/25 04:29 Carbon Dioxide 24 mmol/L (22-29) 07/31/25 04:29 Anion Gap 15.3 (5-19) 07/31/25 04:29 BUN 12 mg/dL (8-23) 07/31/25 04:29 Creatinine 0.7 mg/dL (0.5-0.9) 07/31/25 04:29 GFR Calculation 84.0 mL/min (90-130) L 07/31/25 04:29 Glucose 140 mg/dL (65-115) H 07/31/25 04:29 POC Glucose 118 mg/dL (70-110) H 07/31/25 12:01 Calculated Osmolality 292 mOsm/kg (285-295) 07/31/25 04:29 Calcium 9.1 mg/dL (8.5-10.5) 07/31/25 04:29 Blood Type A Positive 07/30/25 06:23 Rho(D) Type Rh positive 07/30/25 06:23 Antibody Screen Negative 07/30/25 06:23 Vitals Last Vital Signs Temp 97.6 F 07/31/25 11:26 Pulse 64 07/31/25 11:26 Resp 16 07/31/25 11:26 BP 152/78 07/31/25 11:26 Pulse Ox 98 07/31/25 11:26 O2 Del Method Room Air 07/31/25 11:26 O2 Flow Rate 8 07/30/25 09:10 Discharge Plan Discharge Patient Disposition: Home Condition: Stable Prescriptions: New Eliquis 2.5 mg tablet 2.5 mg PO BID 14 Days Qty: 28 0RF cefadroxil 500 mg capsule 500 mg PO BID 7 Days Qty: 14 0RF oxycodone 5 mg tablet 5 mg PO Q6H PRN (Reason: pain postop) 7 Days Qty: 28 0RF Continued ibuprofen 200 mg capsule 200 mg PO Q6H PRN (Reason: Pain) dulaglutide 1.5 mg/0.5 mL pen injector 1.5 mg SUBCUT .WEEKLY 28 Days Qty: 2 6RF acetaminophen [Tylenol 8 Hour] 650 mg tablet extended release 650 mg PO Q8H Discontinued meloxicam 15 mg tablet 15 mg PO ONCE Geriatric Physical Therapist OK for DC: Orthopedics and Hospitalist Discharge Order = DC NOW: Discharge Order (Routine); Ordered 07/31/25 Ordered By: Petey Kaiser Other Ambulatory Orders: Physical Therapy Eval and Treat Outpatient (Order) Timeframe: 3 Days Facility: [facility] - Location: Physical Therapy Ordered By: Petey Kaiser Referrals: [facility] Outpatient Therapy [Outside] - 08/02/25 2:30 pm Petey Kaiser DO [Physician, Orthopedics] - 08/14/25 10:15 am Mindy Butterfield MD [Primary Care Provider, Family Practice] - 08/06/25 11:00 am Discharge Diet: Diabetic Discharge Activity: Limit activity as instructed Patient Instructions: Oxycodone, Slow Release (By mouth), Apixaban (By mouth), Acute Wound Care (DC), Total Knee Replacement (GEN), Post Anesthesia Care Activity Restrictions/Additional Instructions: Orthopedic discharge instructions Jax Dressing--Keep dressing on and dry. After 3 days you can remove some of the dressing and shower. disconnect battery pack when showering. Can cover dressing with Saran wrap prior to shower to prevent dressing from getting wet. Jax dressing will stay on until follow up appt in 2 weeks. The battery pack for the dressing will at 5-7 days. Battery pack can be removed and discarded once batteries . Patient may weight-bear as tolerate to the operative extremity Utilize walker as needed Encourage knee range of motion Ice and elevate as needed for pain and swelling Take pain medication as prescribed Take antinausea medication as needed Pain medication can cause constipation. take [id number] stool softeners and or MiraLAX. Take antibiotic as prescribed for antibiotic infection prophylaxis Take prescribed Eliquis twice daily for the next 14 days for blood clot prevention May supplement for pain with Tylenol [id number] as needed(1000 mg every 8 hours-do not exceed more than 3000mg in 24-hour period) No baths or soaks Follow-up in the orthopedic office in 2 weeks Contact the office for any questions or concerns Caution with continued NSAID use with risk of kidney injury but also increased cardiovascular risk of stroke and heart attack. Follow-up with your primary doctor for reassessment of blood counts. Seek medical attention in case of any worsening or new concerning symptoms. Discharge Attestations Time Spent in Discharge Care*: less than 30 min Quality Metrics Clinical Quality Measures [ No reported AMI, CVA or VTE this stay] Coding Level of Care Code Acute Code for Chg Fwd Diagnoses S/P total knee arthroplasty Z96.659 Type 2 diabetes mellitus without complication, without long-term current use of insulin E11.9 Diabetes mellitus complication status: without complication Diabetes mellitus dedicated intermodal truck driver insulin use: without alf use
== END 2025-07-31 14:35 | disposition home or self-care (01) ==
LOC: MEDSURG 09:26
PROVIDERS: Physician Assistant; Admitting Provider Student in an Organized Health Care Education/Training Program; PCP Family Medicine; Visit Provider Student in an Organized Health Care Education/Training Program
PROC: 8E0Y0CZ Robotic Assisted Procedure of Lower Extremity, Open Approach (ICD-10-PCS; CPT 27447; principal; 2025-07-30 07:00)
DX: M17.12 Unilateral primary osteoarthritis, left knee (principal); E11.9 Type 2 diabetes mellitus without complications; E78.5 Hyperlipidemia, unspecified; I10 Essential (primary) hypertension
CPT/HCPCS: 27447; 20985; 36415; 36416; 51702; 73560; 80048; 82962; 85025; 86850; 86900; 96372; 97110; 97116; 97161; 97165; 97530; A4216; C1713; C1776; G0378; J0131; J0169; J0690; J1100; J1815; J1885; J2250; J2371; J2405; J2704; J2795; J3373; J7030; J9999; L8699

== ENCOUNTER 2025-08-02 14:14 | Outpatient (RCR) | payer OTHER, SELFPAY | END 2025-08-07 23:59 | disposition home or self-care (01) | LOC: SPT 14:14 | PROVIDERS: PCP Family Medicine; Visit Provider Student in an Organized Health Care Education/Training Program | DX: Z47.1 Aftercare following joint replacement surgery (principal); Z96.652 Presence of left artificial knee joint | CPT/HCPCS: 97110; 97161 ==

== ENCOUNTER 2025-08-08 05:00 | Outpatient (RCR) | payer OTHER, SELFPAY | END 2025-09-07 23:59 | disposition home or self-care (01) | LOC: SPT 05:00 | PROVIDERS: PCP Family Medicine; Visit Provider Student in an Organized Health Care Education/Training Program | DX: Z47.1 Aftercare following joint replacement surgery (principal); Z96.659 Presence of unspecified artificial knee joint | CPT/HCPCS: 97110 ==

== ENCOUNTER → 2025-08-14 10:04 | Outpatient (BNVA) | payer OTHER, SELFPAY | PROVIDERS: PCP Family Medicine; Visit Provider Physician Assistant | DX: Z98.890 Other specified postprocedural states (principal); Z96.659 Presence of unspecified artificial knee joint | CPT/HCPCS: 73560; 73565 ==

== ENCOUNTER 2025-09-04 13:38 | Outpatient (CLI) | payer OTHER, SELFPAY ==
--- NOTE | 2025-09-04 13:43 | MM_ITS ---
WS: [id number] BILATERAL 3D TOMOSYNTHESIS DIGITAL SCREENING MAMMOGRAPHY WITH CAD CLINICAL INFORMATION: SCREENING HISTORY: Screening mammogram. No current complaints. COMPARISON: 2023 TECHNIQUE: Bilateral CC and MLO views. FINDINGS: Scattered fibroglandular densities bilaterally. No suspicious focal mass, asymmetry, calcifications, or architectural distortion. No evidence of malignancy. MM/MM scr BI tomosynthesis [id number] IMPRESSION: DENSITY: There are scattered areas of fibroglandular density. BI-RADS: 1 - Negative. FOLLOW UP: 1 Year Follow-up Recommend return to annual screening mammography.
== END 2025-09-04 13:39 | disposition home or self-care (01) ==
LOC: RAD 13:39
PROVIDERS: PCP Family Medicine; Visit Provider Obstetrics & Gynecology
DX: Z12.31 Encounter for screening mammogram for malignant neoplasm of breast (principal); R92.323 Mammographic fibroglandular density, bilateral breasts
CPT/HCPCS: 77063; 77067

== ENCOUNTER → 2025-09-25 09:58 | Outpatient (BNVA) | payer OTHER, SELFPAY | PROVIDERS: PCP Family Medicine; Visit Provider Physician Assistant | DX: Z98.890 Other specified postprocedural states (principal); Z96.659 Presence of unspecified artificial knee joint | CPT/HCPCS: 73560; 73565 ==